=== PATIENT | female | born 1935 | race Caucasian/White ===

== ENCOUNTER → 2016-12-25 | Outpatient (CLI) | payer OTHER | LOC: BMCIMAGING 13:44 | PROVIDERS: ATTEND Internal Medicine | DX: M51.36 Other intervertebral disc degeneration, lumbar region (principal); M51.37 Other intervertebral disc degeneration, lumbosacral region; M43.16 Spondylolisthesis, lumbar region; M53.3 Sacrococcygeal disorders, not elsewhere classified; Z96.641 Presence of right artificial hip joint ==

== ENCOUNTER 2016-12-27 11:46 | Inpatient (IN) | payer OTHER ==
--- NOTE | 2016-12-27 12:40 | EDPHY ---
H & P Stated Complaint: weakness, recent fall, diarrhea, decreased p.o. Source: Patient, Family Exam Limitations: No limitations - Personal History Current Tetanus/Diphtheria Vaccine: Yes Current Tetanus Diphtheria and Acellular Pertussis (TDAP): Yes Tetanus Vaccine Date: within 10 years - Medical/Surgical History Hx Asthma: No Hx Chronic Respiratory Disease: No Hx Diabetes: No Hx Cardiac Disease: No Hx Renal Disease: No Hx Cirrhosis: No Hx Alcoholism: No Hx HIV/AIDS: No Hx Splenectomy or Spleen Trauma: No Other PMH: right hip replacement, hypothyroid - Social History Smoking Status: Never smoked HPI/ROS: CHIEF COMPLAINT: Weakness HISTORY OF PRESENT ILLNESS: Patient presents with daughter and son. They report increasing weakness over the past few weeks. They are to report decreasing energy and decreased activity. They also report decreasing appetite. She has had no chest pain. She has had some cough. She has had diarrhea. She has had extensive and significant weakness. To the point that this morning she could not get out of her bed. Her son tried to get her out of the bed to a walker and she was unable to walk more than 10 feet. She has also a recent fall, for which she was evaluated urgent care with x-ray of the entire spine. She continues to complain of pain in the right hip. This was the only area of concern not x-rayed earlier this week. She was told that her creatinine was elevated when she had labs drawn 3 days ago. No other associated complaints or factors REVIEW OF SYSTEMS: Ten systems reviewed and are negative unless otherwise noted in the HPI PAST MEDICAL HISTORY: Hypothyroid SOCIAL HISTORY: Lives independently by herself here in [place]. Has family that checks on her every week FAMILY HISTORY: Noncontributory EXAMINATION General Appearance: Alert, no distress Head: normocephalic, atraumatic Eyes: Pupils equal and round, no conjunctival pallor or injection ENT, Mouth: Mucous membranes dry. Airway is patent. Neck: Normal inspection, supple, non-tender Respiratory: Mild rhonchi. No crackles, consolidation, diminishment or distress. Cardiovascular: Regular rate and rhythm. No murmur Gastrointestinal: Abdomen is soft and nontender. No distention or tympany. Back: non-tender, no bony abnormalities Neurological: A&O, nonfocal, GCS 15. Strength is 4/5 in all 4 extremities. Skin: Warm and dry, no rash. No petechiae or purpura. No bruising. No lesions or bedsores Extremities: Tender over the right posterior pelvis. Tender over the right anterior hip. Difficulty ranging the right hip due to pain. This is symmetric to the left leg. Range of motion of the upper extremities is symmetric. Psychiatric: Mood and affect normal DIFFERENTIAL DIAGNOSES: Including but not limited to weakness, rhabdomyolysis, acute kidney injury, dehydration, pneumonia, UTI, hip fracture, ischial fracture, iliac fractures MDM: 12:35 p.m. Weakness with energy, anorexia and inability to ambulate on her own. She does appear to be very weak. He had a recent elevated creatinine earlier this week. I am checking her laboratory studies, urinalysis, chest x-ray. Plan for admission to the hospital. She is in no acute distress. No signs of stroke. 1:25 p.m. Notified by radiologist Dr. Quiroz. No acute findings on the CT scans of the head, cervical spine and pelvis. Chronic changes as noted. Chest x-ray reveals no acute pneumonia or consolidation. 1:30 p.m. Notified by RN. Patient has been intermittently noted in atrial fibrillation. Occasionally RVR, occasionally rate control. She has not been hypotensive. She still has no chest pain of any kind. Laboratory studies thus far reveal mild leukocytosis. creatinine is 1.3, which is improved from the 2.4 from 2 days ago. Urinalysis reveals no significant finding. TSH is normal. Patient will be admitted in stable condition for weakness in atrial fibrillation. We have placed her on 5 milligram/hour fixed drip of diltiazem for rate control. 2:00 p.m. I discussed the case with the hospitalist. Patient be admitted to Dr. Haney. She is admitted in stable condition. 3:25 p.m. Patient remains in the department awaiting her bed assignment. Her rate is variable but her pressure remains normal. She is in no acute distress. SUPERVISION: Patient was evaluated in conjunction with the supervising physician. Please see their note for details. (Hiro Mcgrath) Constitutional: Initial Vital Signs Temperature (C) 36.5 C 12/27/16 12:16 Heart Rate 90 12/27/16 12:16 Respiratory Rate 16 12/27/16 12:16 Blood Pressure 139/82 H 12/27/16 12:16 O2 Sat (%) 92 08/04/17 12:16 O2 Delivery Mode Room Air Allergies/Adverse Reactions: No Known Allergies Allergy (Unverified 05/14/11 16:30) Home Medications: Medication Instructions Recorded Cyanocobalamin [Vitamin B12 (*)] 1,000 mcg PO DAILY 12/27/16 Levothyroxine [Synthroid 112 mcg 112 mcg PO DAILY06 12/27/16 (*)] Liothyronine Sodium [Cytomel 5 mcg 5 mcg PO DAILY 12/27/16 (*)] Medical Decision Making - Diagnostics EKG Interpretation: 12-lead EKG interpreted by me; official reading is in trace master. My interpretation is wondering pacemaker versus intermittent atrial fibrillation, rate 128. (Shaq Velásquez) Imaging Results: Imaging Impressions Chest X-Ray 12/27/16 12:34 Impression: Mild perihilar bronchial wall thickening, with no focal infiltrate identified. If there is progression of the patient's symptoms, consider PA and lateral upright views in the department. Pelvis CT 12/27/16 12:41 Impression: 1. No acute fracture. 2. No free fluid or pelvic hematoma. Findings discussed with Emergency Department physician's assistant counsel, Hiro Mcgrath , at 1335 hours 12/27/2016. Head CT 12/27/16 12:43 Impression: 1. Negative. No subdural hematoma or evidence of acute injury. 2. Atrophy and moderate diffuse white matter disease. Findings discussed with Emergency Department physician's assistant counsel, Hiro Mcgrath , 1335 hours 12/27/2016. Cervical Spine CT 12/27/16 12:44 Impression: 1. No acute fracture or soft tissue swelling. 2. Multilevel severe degenerative disk and facet arthropathy. 3. If the patient has persistent pain or neurologic deficits, consider cervical spine MRI. Findings discussed with Emergency Department physician's assistant counsel, Hiro Mcgrath , at 1335 hours 12/27/2016. ED Course/Re-evaluation: 1500: Patient was signed out to me at change of shift by Dr. Velásquez. During the patient stay she was noted to have have a temperature when her vital signs were recheck. Went personally evaluated the patient. She was currently on diltiazem drip. The patient had no new complaints. She denies chest pain or shortness of breath. No abdominal pain, nausea or vomiting. I reviewed the patient's laboratory studies. [place] [address]. The patient's urine showed white cells but no bacteria, nitrate , or leuk esterase. Reviewed the patient's chest x-ray. There is no focal infiltrate. Based on the patient's temperature and elevated white count she was given Rocephin 1 g IV. This will cover for possible early pneumonia and possible urinary tract infection. Blood cultures were sent prior to treating with Rocephin. I contacted the hospitalist service, Dr. York to inform them of the elevated temperature. It is noted the patient has had normal saline 1 L IV for hydration since being here. She has not had any urine production in the emergency department. She was given normal saline 500 mL IV. 1755: The patient is stable. No new complaints. (Janie José) Other Provider: PHYSICIAN DOCUMENTATION: The patient was evaluated and managed by the Physician Regional Coordinator and myself. I have reviewed the chart and agree with the findings and plan of care as documented. In addition, I examined the patient myself at 1340. History confirmed as weakness and diarrhea but no palpitations chest pain or shortness of breath. Physical findings as follows: Alert, normally conversant, generally weak and irregularly irregular radial pulse. EKG reviewed appears show narrow complex tachycardia, query atrial fibrillation on EKG versus SVT. Diltiazem drip started at 5 mg an hour, TSH and troponin pending. I am the secondary supervising physician. (Shaq Velásquez) - Data Points Laboratory Results: Laboratory Results 12/27/16 12:40 12/27/16 12:40 12/27/16 12/27/16 12/27/16 13:25 12:40 12:40 WBC RBC Hgb Hct MCV MCH MCHC RDW Plt Count MPV Neut % (Auto) Lymph % (Auto) [place] % (Auto) Eos % (Auto) Baso % (Auto) Nucleat RBC Rel Count Absolute Neuts (auto) Absolute Lymphs (auto) Absolute Monos (auto) Absolute Eos (auto) Absolute Basos (auto) Absolute Nucleated RBC Immature Gran % Immature Gran # PT 14.5 SEC SEC (12.0-15.0) INR 1.14 (0.83-1.16) APTT 26.3 SEC SEC (23.0-38.0) Sodium 134 mEq/L mEq/L (134-144) Potassium 4.2 mEq/L mEq/L (3.5-5.2) Chloride 97 mEq/L mEq/L (97-110) Carbon Dioxide 22 mEq/l mEq/l (22-31) Anion Gap 15 mEq/L mEq/L (8-16) BUN 22 mg/dL mg/dL (7-23) Creatinine 1.3 mg/dL H mg/dL (0.6-1.0) Estimated GFR 39 Glucose 158 mg/dL H mg/dL (70-100) Calcium 9.2 mg/dL mg/dL (8.5-10.4) Total Bilirubin 1.1 mg/dL D mg/dL (0.1-1.4) Conjugated Bilirubin 0.3 mg/dL mg/dL (0.0-0.5) Unconjugated Bilirubin 0.8 mg/dL mg/dL (0.0-1.1) AST 60 IU/L H IU/L (14-46) ALT 94 IU/L H IU/L (9-52) Alkaline Phosphatase 155 IU/L H IU/L (38-126) Creatine Kinase 48 IU/L IU/L (0-156) Troponin I 0.032 ng/mL ng/mL (0-0.034) Total Protein 7.7 g/dL g/dL (6.3-8.2) Albumin 3.6 g/dL g/dL (3.5-5.0) Lipase 38.0 IU/L IU/L (23-300) TSH 0.490 uIU/mL uIU/mL (0.465-4.680) Urine Color YELLOW Urine Appearance HAZY Urine pH 5.0 (5.0-7.5) Ur Specific [place] 1.018 (1.002-1.030) Urine Protein 1+ H (NEGATIVE) Urine Ketones TRACE H (NEGATIVE) Urine Blood 1+ H (NEGATIVE) Urine Nitrate NEGATIVE (NEGATIVE) Urine Bilirubin NEGATIVE (NEGATIVE) Urine Urobilinogen NEGATIVE EU EU (0.2-1.0) Ur Leukocyte Esterase NEGATIVE (NEGATIVE) Urine RBC 1-3 /hpf /hpf (0-3) Urine WBC 3-5 /hpf H /hpf (0-3) Ur Epithelial Cells TRACE /lpf /lpf (NONE-1+) Urine Bacteria NONE SEEN /hpf /hpf (NONE SEEN) Urine Mucus TRACE /lpf /lpf (NONE-1+) Urine Yeast NONE SEEN /hpf /hpf (NONE SEEN) Urine Glucose NEGATIVE (NEGATIVE) 12/27/16 12:40 WBC 14.53 10^3/uL H 10^3/uL (3.80-9.50) RBC 4.78 10^6/uL 10^6/uL (4.18-5.33) Hgb 15.0 g/dL g/dL (12.6-16.3) Hct 43.0 % % (38.0-47.0) MCV 90.0 fL fL (81.5-99.8) MCH 31.4 pg pg (27.9-34.1) MCHC 34.9 g/dL g/dL (32.4-36.7) RDW 14.1 % % (11.5-15.2) Plt Count 255 10^3/uL D 10^3/uL (150-400) MPV 10.3 fL fL (8.7-11.7) Neut % (Auto) 86.3 % H % (39.3-74.2) Lymph % (Auto) 3.2 % L % (15.0-45.0) [place] % (Auto) 8.8 % % (4.5-13.0) Eos % (Auto) 0.0 % L % (0.6-7.6) Baso % (Auto) 0.3 % % (0.3-1.7) Nucleat RBC Rel Count 0.0 % % (0.0-0.2) Absolute Neuts (auto) 12.53 10^3/uL H 10^3/uL (1.70-6.50) Absolute Lymphs (auto) 0.46 10^3/uL L 10^3/uL (1.00-3.00) Absolute Monos (auto) 1.28 10^3/uL H 10^3/uL (0.30-0.80) Absolute Eos (auto) 0.00 10^3/uL L 10^3/uL (0.03-0.40) Absolute Basos (auto) 0.05 10^3/uL 10^3/uL (0.02-0.10) Absolute Nucleated RBC 0.00 10^3/uL 10^3/uL (0-0.01) Immature Gran % 1.4 % H % (0.0-1.1) Immature Gran # 0.21 10^3/uL H 10^3/uL (0.00-0.10) PT INR APTT Sodium Potassium Chloride Carbon Dioxide Anion Gap BUN Creatinine Estimated GFR Glucose Calcium Total Bilirubin Conjugated Bilirubin Unconjugated Bilirubin AST ALT Alkaline Phosphatase Creatine Kinase Troponin I Total Protein Albumin Lipase TSH Urine Color Urine Appearance Urine pH Ur Specific [place] Urine Protein Urine Ketones Urine Blood Urine Nitrate Urine Bilirubin Urine Urobilinogen Ur Leukocyte Esterase Urine RBC Urine WBC Ur Epithelial Cells Urine Bacteria Urine Mucus Urine Yeast Urine Glucose Medications Given: Discontinued Medications Dabigatran (Pradaxa) 150 mg PO EDNOW ONE Stop: 12/27/16 14:28 Last Admin: 12/27/16 15:20 Dose: 150 mg Diltiazem HCl 125 mg/ Dextrose 125 mls @ 0 mls/hr IV EDNOW ONE; As Directed PRN Reason: Protocol Stop: 12/27/16 13:43 Last Admin: 12/27/16 14:10 Dose: 125 mls Ceftriaxone Sodium/Dextrose (Rocephin 1 Gm (Premix)) 50 mls @ 100 mls/hr IV EDNOW ONE PRN Reason: Protocol Stop: 12/27/16 17:35 Last Admin: 12/27/16 17:41 Dose: 50 mls Departure - Departure Disposition: [facility] Inpatient Acute Clinical Impression: Atrial fibrillation Qualifiers: Atrial fibrillation type: unspecified Qualified Code(s): I48.91 - Unspecified atrial fibrillation Fever Qualifiers: Fever type: unspecified Qualified Code(s): R50.9 - Fever, unspecified Condition: Good
[2016-12-27 12:52] LABS: % IMMATURE GRANULYOCYTES 1.4 % (0.0-1.1); ABSOLUTE IMMATURE GRANULOCYTES 0.21 10^3/uL (0.00-0.10); ADD DIFF? NO; ADD MORPH? NO; ADD SCAN? NO; ATYPICAL LYMPHOCYTE FLAG 30 (0-99); FRAGMENT RBC FLAG 0 (0-99); LEFT SHIFT FLG 20 (0-99); LIPEMIA HEMOLYSIS FLAG 90 (0-99); MEAN CELL HEMOGLOBIN 31.4 pg (27.9-34.1); MEAN CELL HEMOGLOBIN CONCENTR. 34.9 g/dL (32.4-36.7); MEAN PLATELET VOLUME 10.3 fL (8.7-11.7); PLATELET CLUMPS FLAG 40 (0-99); PLATELET COUNT 255 10^3/uL (150-400); RED BLOOD CELL COUNT 4.78 10^6/uL (4.18-5.33); RED CELL DISTRIBUTION WIDTH 14.1 % (11.5-15.2)
[2016-12-27 13:06] LABS: ALANINE AMINOTRANSFERASE 94 IU/L (9-52); ALBUMIN 3.6 g/dL (3.5-5.0); ALKALINE PHOSPHATASE 155 IU/L (38-126); ANION GAP 15 mEq/L (8-16); ASPARTATE AMINOTRANSFERASE 60 IU/L (14-46); BILIRUBIN,TOTAL 1.1 mg/dL (0.1-1.4); BILIRUBIN-CONJUGATED 0.3 mg/dL (0.0-0.5); BILIRUBIN-UNCONJUGATED 0.8 mg/dL (0.0-1.1); CALCIUM 9.2 mg/dL (8.5-10.4); CARBON DIOXIDE 22 mEq/l (22-31); CHLORIDE 97 mEq/L (97-110); CREATININE 1.3 mg/dL (0.6-1.0); GLOMERULAR FILTRATION RATE 39; GLUCOSE 158 mg/dL (70-100); POTASSIUM 4.2 mEq/L (3.5-5.2); SODIUM 134 mEq/L (134-144); TOTAL PROTEIN 7.7 g/dL (6.3-8.2)
--- NOTE | 2016-12-27 13:08 | CPEKG ---
Heart Rate: 128 RR Interval: 469 P-R Interval: 160 QRSD Interval: 74 QT Interval: 340 QTC Interval: 496 P [place]: 0 QRS [place]: -8 T Wave [place]: 62 EKG Severity - BORDERLINE ECG - EKG Impression: WANDERING PACEMAKER EKG Impression: BORDERLINE PROLONGED QT INTERVAL Electronically Signed By: Shaq Velásquez 27-Dec-2016 13:28:47
[2016-12-27 13:10] LABS: APTT 26.3 SEC (23.0-38.0); INR 1.14 (0.83-1.16); PROTIME(PATIENT) 14.5 SEC (12.0-15.0)
[2016-12-27 13:18] LABS: TROPONIN I 0.032 ng/mL (0-0.034)
[2016-12-27 13:36] LABS: COLOR YELLOW; LEUKOCYTE ESTERASE,URINE NEGATIVE (NEGATIVE); NITRITE,URINE NEGATIVE (NEGATIVE)
[2016-12-27] MEDS ORDERED: DILTIAZEM 125 MG in D5W 125 ML IV ONE (13:42)
[2016-12-27 13:45] LABS: MUCUS TRACE /lpf (NONE-1+)
[2016-12-27 13:47] LABS: BACTERIA NONE SEEN /hpf (NONE SEEN); YEAST NONE SEEN /hpf (NONE SEEN)
[2016-12-27] MEDS ORDERED: DABIGATRAN ETEXILATE MESYL 150 MG CAP PO ONE (14:27)
[2016-12-27] MEDS ORDERED: BISACODYL 10 MG SUPP PR PRN (16:44)
[2016-12-27] MEDS ORDERED: POLYETHYLENE GLYCOL 3350 17 GM PKT PO PRN (16:44)
[2016-12-27] MEDS ORDERED: MAGNESIUM HYDROXIDE 30 ML UDCUP PO PRN (16:44)
[2016-12-27] MEDS ORDERED: ONDANSETRON 4 MG/2 ML VIAL IVP PRN (16:44)
[2016-12-27] MEDS ORDERED: PROMETHAZINE HCL 25 MG/ML INJ IVP PRN (16:44)
[2016-12-27] MEDS ORDERED: LACTULOSE 20 GM/30 ML UDCUP PO PRN (16:44)
[2016-12-27] MEDS ORDERED: ONDANSETRON DISINTEGRATING 4 MG TAB PO PRN (16:44)
[2016-12-27] MEDS ORDERED: DILTIAZEM 25 MG/5 ML VIAL IVP ONE (16:45)
[2016-12-27] MEDS ORDERED: DILTIAZEM 125 MG in D5W 125 ML IV SCH (16:45)
[2016-12-27] MEDS ORDERED: NS 500 ML IV ONE (17:07)
[2016-12-27] MEDS ORDERED: HYDROmorphONE/DILAUDID 1 MG/ML SYR IVP PRN (18:35)
[2016-12-27] MEDS: ACETAMINOPHEN 325 MG TAB PO PRN ×2 (18:59→22:58)
--- NOTE | 2016-12-27 20:05 | GHP ---
[f rep st] HISTORY AND PHYSICAL DATE OF ADMISSION: 12/27/2016 CHIEF COMPLAINT: Generalized weakness. HISTORY: This is an 81-year-old female who has a past medical history that includes chronic kidney disease, hypothyroidism, and hypertension, and presents with increasing weakness and recurrent falls over the last couple of weeks. It sounds like she has also had diarrhea for about 3 weeks. About 1 week ago, she had a fall and afterwards was unable to get up off the ground. Her daughter was abl e to come over and found her on the ground, and she notes that she had been lying there for about 4 hours. She was seen by her primary care physician after that incident, and was noted to have acute kidney injury and chronic kidney disease, as well as to be tachycardic, and was sent home with a flaco n to follow up in the coming days. She has had similar issues with inability to get up since then. She has also been noted to have shaking chills and overall decreased energy and decreased oral inta ke. Her diarrhea does seem to have resolved and she is now having constipation; has not had a bowel movement for 4 days. Family notes that she has been followed by her PCP who had concerns about her renal function and liver function labs and informed the family that this might be cancer and that s he would be following the labs to determine if she needs more of a workup. They are uncertain why h er PCP thought that she might have cancer, but this has been brought up apparently on more than 1 oc casion. She also may have had blood in her stool, but this too has not been worked up further. The patient notes that she has had colonoscopies in the past, although she does not remember the last t suad. She notes that they have all been normal. PAST MEDICAL HISTORY: 1. Hypothyroidism. 2. Hypertension. 3. Chronic kidney disease with baseline creatinine around 1.4. PAST SURGICAL HISTORY: 1. Includes hysterectomy. 2. Hip replacement. 3. Right femoral neck surgery. FAMILY HISTORY: This was reviewed and noncontributory. SOCIAL HISTORY: The patient currently lives alone. She has 2 grown children who live nearby and as sist in her care. She is a nonsmoker. She does drink alcohol occasionally. REVIEW OF SYSTEMS: A 10-point review of systems was obtained. Negative, except as per HPI. HOME MEDICATIONS: 1. Liothyronine. 2. Levothyroxine. 3. Cyanocobalamin. ALLERGIES: No known drug allergies. PHYSICAL EXAM: VITAL SIGNS: Blood pressure 157/60, heart rate 110, respiratory rate 18, O2 saturat ion is 93% on 2 L, temperature is 38.1 with a T-max of 38.4. GENERAL APPEARANCE: She is an elderly female. She is awake and alert. She is in mild distress. EYES: Anicteric. HEENT: Oropharynx c lear. CARDIOVASCULAR: Irregularly irregular, tachycardic, no MRG. PULMONARY: CTA bilaterally to anterior exam. ABDOMEN: Soft. Bowel sounds are decreased. She has diffuse tenderness to palpatio n without any rebound or guarding. EXTREMITIES: No clubbing, cyanosis, or edema. SKIN: Warm, dry , well perfused. NEUROPSYCHIATRIC: Oriented and appropriate. CLINICAL DATA: Labs reviewed significant for white blood cell count of 14.5, hematocrit of 43, plat elets of 255. Coagulation studies are within normal limits. Lactic acid is 1.3. Chemistry is nota ble for a creatinine of 1.3, down from 1.4 and 2.4 on her previous visit to her GP. AST of 60, ALT of 94, alkaline phosphatase of 155, troponin is 0.032. Urinalysis shows 1+ protein, trace ketones, 1+ blood, 3-5 white cells. Chest x-ray, personally reviewed and interpreted, shows mild perihilar bronchial wall thickening, wi thout a focal infiltrate. EKG, personally reviewed and interpreted, showing wandering atrial pacemaker. On telemetry, looks m ore consistent with atrial fibrillation. Head CT negative for any acute findings. C-spine CT without acute fractures, along with multilevel severe degenerative disk and facet arthrop athy. Pelvic CT: No acute fracture. ASSESSMENT AND PLAN: This is an 81-year-old female with increased weakness along with atrial fibril lation with rapid ventricular response and fever and chills. 1. Weakness. Suspect this is multifactorial. She is noted to be in atrial fibrillation with rapid ventricular response on arrival, but also has an elevated white blood cell count and fever, which w ill be discussed next. Also concerned that she has been dehydrated in the recent past with a creati nine as high as 2.4. Plan will be for hydration and treatment of each individual issue, as will be described next. 2. Atrial fibrillation with rapid ventricular response. Her rate has been up to the 120s to 130s. As far as the family knows, this is the 1st time she has had this issue. The plan will be to admit to telemetry. She has been given IV push diltiazem and will be started on a diltiazem drip. We wi ll monitor troponin levels and obtain an echocardiogram in the morning. Cardiology also has been co nsulted. 3. Systemic inflammatory response syndrome. Patient with fever and leukocytosis, along with tachyc ardia. Chest x-ray is not consistent with pneumonia, and urinalysis not consistent with infection; however, she does have elevated liver function tests and some abdominal pain, raising the question o f cholecystitis. Will start her on ertapenem empirically for now, pending right upper quadrant ultr asound. She does appear hemodynamically stable without any evidence of end-organ dysfunction at thi s point. 4. Abnormal liver function tests. Again, patient with mild transaminitis and elevated alkaline delia sphatase which has been persistent for several days. She does have some abdominal discomfort as piedad l. Apparently, her primary care physician has been concerned that this is cancer, but on initial ev aluation this seems more likely to be cholecystitis or similar issue. Again, we will obtain a right upper quadrant ultrasound and start antibiotics empirically. Will trend her liver function tests. 5. Diarrhea. This has resolved prior to admission, but will check Clostridium difficile/gastrointe stinal pathogen panel should it recur. Will also check an occult blood. 6. Chronic kidney disease. This does seem to be back to baseline. Again, recently worse in the se tting of dehydration and diarrhea. Will monitor. 7. Hyperglycemia. This is likely a stress response. She has had hemoglobin A1c in the past that w as 5.6, although it has been several years. Should this be persistent, I will recheck a hemoglobin A1c at that point. 8. Inpatient status. Suspect patient will need greater than 48 hours stay for evaluation and manag ement of above given multiple active issues on presentation. CODE STATUS: This was reviewed with the patient and her family. She would like to be full code wit h her daughter serving as a DPOA should she have the need for one. This patient is new to my care. Old records reviewed. Summarized as per HPI and past medical histo ry. Care plan reviewed with ER physician, including plans for treatment of atrial fibrillation. /[id number]/MODL
[2016-12-27] MEDS: ERTAPENEM 1 GM in NS 100 ML IV SCH (20:23)
[2016-12-27 20:57] LABS: INR 1.9 (0.83-1.16); PROTIME(PATIENT) 21.9 SEC (12.0-15.0)
[2016-12-27 20:58] LABS: APTT 61.5 SEC (23.0-38.0)
[2016-12-27] MEDS: SENNOSIDES/DOCUSATE SODIUM TAB PO SCH (22:58)
[2016-12-27] MEDS: ENOXAPARIN 80 MG/0.8 ML SYR SC SCH (22:59)
[2016-12-28 02:37] LABS: COLOR YELLOW; LEUKOCYTE ESTERASE,URINE TRACE (NEGATIVE); NITRITE,URINE NEGATIVE (NEGATIVE)
[2016-12-28 02:44] LABS: BACTERIA 4+ /hpf (NONE SEEN); MUCUS 3+ /lpf (NONE-1+); RBC,URINE 15-25 /hpf (0-3); WBC,URINE 15-25 /hpf (0-3)
[2016-12-28] MEDS: LEVOTHYROXINE 112 MCG TAB PO SCH (04:02)
[2016-12-28] MEDS: ACETAMINOPHEN 325 MG TAB PO PRN ×2 (04:26→19:57)
[2016-12-28 04:27] LABS: % IMMATURE GRANULYOCYTES 1.7 % (0.0-1.1); ABSOLUTE IMMATURE GRANULOCYTES 0.25 10^3/uL (0.00-0.10); ADD DIFF? NO; ADD MORPH? NO; ADD SCAN? NO; ATYPICAL LYMPHOCYTE FLAG 20 (0-99); FRAGMENT RBC FLAG 0 (0-99); HEMATOCRIT 42.1 % (38.0-47.0); HEMOGLOBIN 14.2 g/dL (12.6-16.3); LEFT SHIFT FLG 80 (0-99); LIPEMIA HEMOLYSIS FLAG 80 (0-99); MEAN CELL HEMOGLOBIN 31.1 pg (27.9-34.1); MEAN CELL HEMOGLOBIN CONCENTR. 33.7 g/dL (32.4-36.7); MEAN CELL VOLUME 92.3 fL (81.5-99.8); MEAN PLATELET VOLUME 10.6 fL (8.7-11.7); PLATELET CLUMPS FLAG 30 (0-99); PLATELET COUNT 232 10^3/uL (150-400); RED BLOOD CELL COUNT 4.56 10^6/uL (4.18-5.33); RED CELL DISTRIBUTION WIDTH 14.4 % (11.5-15.2)
[2016-12-28] MEDS: NS 1,000 ML IV SCH ×2 (04:30→14:01)
[2016-12-28 05:11] LABS: ALANINE AMINOTRANSFERASE 64 IU/L (9-52); ALBUMIN 2.8 g/dL (3.5-5.0); ALKALINE PHOSPHATASE 135 IU/L (38-126); ANION GAP 14 mEq/L (8-16); ASPARTATE AMINOTRANSFERASE 39 IU/L (14-46); BILIRUBIN,TOTAL 1.2 mg/dL (0.1-1.4); CALCIUM 8.6 mg/dL (8.5-10.4); CARBON DIOXIDE 17 mEq/l (22-31); CHLORIDE 104 mEq/L (97-110); GLOMERULAR FILTRATION RATE 53; GLUCOSE 107 mg/dL (70-100); POTASSIUM 4.2 mEq/L (3.5-5.2); SODIUM 135 mEq/L (134-144); TOTAL PROTEIN 6.1 g/dL (6.3-8.2)
[2016-12-28 05:22] LABS: TROPONIN I 0.019 ng/mL (0-0.034)
[2016-12-28] MEDS: CYANO/VITAMIN B12 1000 MCG TAB PO SCH (08:27)
[2016-12-28] MEDS: LIOTHYRONINE SODIUM 5 MCG TAB PO SCH (08:27)
[2016-12-28] MEDS: ENOXAPARIN 80 MG/0.8 ML SYR SC SCH (08:28)
[2016-12-28] MEDS: SENNOSIDES/DOCUSATE SODIUM TAB PO SCH ×2 (08:29→19:40)
[2016-12-28] MEDS: ERTAPENEM 1 GM in NS 100 ML IV SCH (08:29)
--- NOTE | 2016-12-28 09:02 | CPEKG ---
Heart Rate: 122 RR Interval: 492 P-R Interval: 157 QRSD Interval: 82 QT Interval: Invalid QTC Interval: Invalid P [place]: 0 QRS [place]: -19 T Wave [place]: 140 EKG Severity - ABNORMAL ECG - EKG Impression: SINUS TACHYCARDIA EKG Impression: Frequent PAC EKG Impression: BORDERLINE LEFT AXIS DEVIATION EKG Impression: CONSIDER ANTERIOR INFARCT EKG Impression: ABNORMAL T, CONSIDER ISCHEMIA, LATERAL LEADS Electronically Signed By: Errol Fuentes 28-Dec-2016 11:13:56
--- NOTE | 2016-12-28 12:11 | PDCARCONS ---
Cardiology Consult Reason for Consult: atrial arrhythmias Chief Complaint: fall, weakness, diarrhea Requesting Physician: Dr. Shaniqua Schmidt History of Present Illness: 81-year-old female admitted after her son found her fallen on the floor from her bed. She was seen on 2 [facility] floor with her daughter, son and higher and present in the room. She has been having diarrhea over the last 2 weeks, she went with her daughter- in-law for lunch last week and after a couple of glasses of wine was noted to be very unsteady on her feet and had to be helped into bed. Subsequently she was found by her son yesterday having fallen out of her bed and unable to get herself back in bed. She was brought to the emergency department and evaluated for any trauma, although the scans did not show any significant traumatic injuries. At the time of this interview, she denies any chest pain or shortness of breath. She has had falls as mentioned above. History Information - Allergies/Home Medication List Allergies/Adverse Reactions: No Known Allergies Allergy (Unverified 05/14/11 16:30) Home Medications: Cyanocobalamin [Vitamin B12 (*)] 1,000 mcg PO DAILY 12/27/16 [Last Taken ] Levothyroxine [Synthroid 112 mcg (*)] 112 mcg PO DAILY06 12/27/16 [Last Taken ] Liothyronine Sodium [Cytomel 5 mcg (*)] 5 mcg PO DAILY 12/27/16 [Last Taken 09/09] I have personally reviewed and updated: family history, medical history, social history, surgical history - Social History Smoking Status: Never smoked Physical Exam Temp Pulse Resp BP Pulse Ox 36.6 C 148 H 17 110/73 90 L 12/28/16 11:34 12/28/16 11:34 12/28/16 11:34 12/28/16 11:34 12/28/16 11:34 O2 (L/minute) 2 Constitutional: not in pain, chronically ill appearing, unkempt Eyes: PERRL, EOMI Ears, Nose, Mouth, Throat: moist mucous membranes Cardiovascular: systolic murmur, No regular rate and rhythym, No edema Respiratory: no respiratory distress Gastrointestinal: soft, non-tender abdomen Skin: warm, normal color Psychiatric: interacting appropriately, not encephalopathic Lab and Imaging 12/28/16 04:06 12/28/16 04:06 WBC 15.14 10^3/uL (3.80-9.50) H 12/28/16 04:06 RBC 4.56 10^6/uL (4.18-5.33) 12/28/16 04:06 Hgb 14.2 g/dL (12.6-16.3) 12/28/16 04:06 Hct 42.1 % (38.0-47.0) 12/28/16 04:06 MCV 92.3 fL (81.5-99.8) 12/28/16 04:06 MCH 31.1 pg (27.9-34.1) 12/28/16 04:06 MCHC 33.7 g/dL (32.4-36.7) 12/28/16 04:06 RDW 14.4 % (11.5-15.2) 12/28/16 04:06 Plt Count 232 10^3/uL (150-400) 12/28/16 04:06 MPV 10.6 fL (8.7-11.7) 12/28/16 04:06 Neut % (Auto) 86.5 % (39.3-74.2) H 12/28/16 04:06 Lymph % (Auto) 4.6 % (15.0-45.0) L 12/28/16 04:06 [place] % (Auto) 6.7 % (4.5-13.0) 12/28/16 04:06 Eos % (Auto) 0.1 % (0.6-7.6) L 12/28/16 04:06 Baso % (Auto) 0.4 % (0.3-1.7) 12/28/16 04:06 Nucleat RBC Rel Count 0.0 % (0.0-0.2) 12/28/16 04:06 Absolute Neuts (auto) 13.11 10^3/uL (1.70-6.50) H 12/28/16 04:06 Absolute Lymphs (auto) 0.69 10^3/uL (1.00-3.00) L 12/28/16 04:06 Absolute Monos (auto) 1.02 10^3/uL (0.30-0.80) H 12/28/16 04:06 Absolute Eos (auto) 0.01 10^3/uL (0.03-0.40) L 12/28/16 04:06 Absolute Basos (auto) 0.06 10^3/uL (0.02-0.10) 12/28/16 04:06 Absolute Nucleated RBC 0.00 10^3/uL (0-0.01) 12/28/16 04:06 Immature Gran % 1.7 % (0.0-1.1) H 12/28/16 04:06 Immature Gran # 0.25 10^3/uL (0.00-0.10) H 12/28/16 04:06 PT 21.9 SEC (12.0-15.0) H 12/27/16 20:33 INR 1.90 (0.83-1.16) H 12/27/16 20:33 APTT 61.5 SEC (23.0-38.0) H D 12/27/16 20:33 VBG Lactic Acid 1.3 mmol/L (0.7-2.1) 12/27/16 17:45 Sodium 135 mEq/L (134-144) 12/28/16 04:06 Potassium 4.2 mEq/L (3.5-5.2) 12/28/16 04:06 Chloride 104 mEq/L (97-110) 12/28/16 04:06 Carbon Dioxide 17 mEq/l (22-31) L 12/28/16 04:06 Anion Gap 14 mEq/L (8-16) 12/28/16 04:06 BUN 18 mg/dL (7-23) 12/28/16 04:06 Creatinine 1.0 mg/dL (0.6-1.0) 12/28/16 04:06 Estimated GFR 53 12/28/16 04:06 Glucose 107 mg/dL (70-100) H 12/28/16 04:06 Calcium 8.6 mg/dL (8.5-10.4) 12/28/16 04:06 Phosphorus 3.2 mg/dL (2.5-4.5) 12/28/16 04:06 Magnesium 2.0 mg/dL (1.6-2.3) 12/28/16 04:06 Total Bilirubin 1.2 mg/dL (0.1-1.4) 12/28/16 04:06 Conjugated Bilirubin 0.3 mg/dL (0.0-0.5) 12/27/16 12:40 Unconjugated Bilirubin 0.8 mg/dL (0.0-1.1) 12/27/16 12:40 AST 39 IU/L (14-46) 12/28/16 04:06 ALT 64 IU/L (9-52) H 12/28/16 04:06 Alkaline Phosphatase 135 IU/L (38-126) H 12/28/16 04:06 Creatine Kinase 48 IU/L (0-156) 12/27/16 12:40 Troponin I 0.019 ng/mL (0-0.034) 12/28/16 04:06 Total Protein 6.1 g/dL (6.3-8.2) L D 12/28/16 04:06 Albumin 2.8 g/dL (3.5-5.0) L 12/28/16 04:06 Lipase 38.0 IU/L (23-300) 12/27/16 12:40 TSH 0.490 uIU/mL (0.465-4.680) 12/27/16 12:40 Urine Color YELLOW 12/28/16 01:52 Urine Appearance MODERATELY TURBID 12/28/16 01:52 Urine pH 5.0 (5.0-7.5) 12/28/16 01:52 Ur Specific [place] 1.019 (1.002-1.030) 12/28/16 01:52 Urine Protein 2+ (NEGATIVE) H 12/28/16 01:52 Urine Ketones NEGATIVE (NEGATIVE) 12/28/16 01:52 Urine Blood 1+ (NEGATIVE) H 12/28/16 01:52 Urine Nitrate NEGATIVE (NEGATIVE) 12/28/16 01:52 Urine Bilirubin NEGATIVE (NEGATIVE) 12/28/16 01:52 Urine Urobilinogen NEGATIVE EU (0.2-1.0) 12/28/16 01:52 Ur Leukocyte Esterase TRACE (NEGATIVE) H 12/28/16 01:52 Urine RBC 15-25 /hpf (0-3) H 12/28/16 01:52 Urine WBC 15-25 /hpf (0-3) H 12/28/16 01:52 Ur Epithelial Cells 4+ /lpf (NONE-1+) H 12/28/16 01:52 Urine Bacteria 4+ /hpf (NONE SEEN) H 12/28/16 01:52 Urine Mucus 3+ /lpf (NONE-1+) H 12/28/16 01:52 Urine Yeast NONE SEEN /hpf (NONE SEEN) 12/27/16 13:25 Ur Culture Indicated? INDICATED (NI) H 12/28/16 01:52 Urine Glucose 1+ (NEGATIVE) H 12/28/16 01:52 EKG additional interpertation: Sinus rhythm with wandering atrial pacemaker and salvos of atrial tachycardia Telemetry: Sinus rhythm with wandering atrial pacemaker and salvos of atrial tachycardia with heart rate up to 130 beats per minute. Echocardiogram: Has been done, I will review it. A/P Assessment: 1. Diarrhea 2. Hepatic and renal dysfunction, possibly related to dehydration 3. Sinus rhythm with wandering atrial pacemaker, short episodes of atrial tachycardia. Plan: 81-year-old female was admitted with dehydration related to diarrhea, hepatic and renal dysfunction. I have been asked to comment on her atrial arrhythmias. I have reviewed both her EKGs and her monitoring analyst. I do not see atrial fibrillation. Rhythm is consistent with sinus rhythm with wandering atrial pacemaker and short episodes of atrial tachycardia. She does not need full dose of anticoagulation. I have discussed this with Dr. Shaniqua Schmidt and the patient's nurse who will make appropriate changes in her Lovenox dose. As regards management of her atrial arrhythmias, I am going to start her on oral diltiazem and hopefully we can wean her IV diltiazem off. Thank you for the consultation, please do not hesitate to call us again if there are any further questions or concerns.
[2016-12-28] MEDS: DILTIAZEM 60 MG TAB PO SCH ×2 (13:30→19:40)
--- NOTE | 2016-12-28 13:46 | ECHO ---
[id number] + + [address] : : [place] [address] : : [phone] + + Adult Echocardiographic Report + + :Name: FRANKO MATHEWS JStudy Date: 12/28/2016 09:04 AM : : Hospital Admission Number: [id number] Location: 216: :: 1935 Gender: Female Height: 63 in : :Age: 81 yrs Race: WH Weight: 150 lb : :Reason For Study: New atrial fibrillaiton : : BSA: 1. 7 meters2 : + + MMode/2D Measurements \T\ Calculations LVIDd: 4.2 cm EDV(Teich): 80.0 ml Ao root diam: 3.9 cm LA dimension: 3.7 cm Normal Measurement Values: + + :LVIDd (3.5-5.7cm) IVSd (0.6-1.1cm) LVPWd (0.6-1.1cm) Aortic Root (2.0-3.7cm)Left Atrium (1.5-4.0cm): :LV Vol(d) (76-115ml) LV Vol(s) (29-48ml) Ejec Fraction (50-65%)PV Chaitanya (0.6- 1.2m/s) TV Chaitanya (0.4-1.0m/s) : :MV E Chaitanya (0.8-1.0m/s)MV A Chaitanya (0.3-1.0m/s)LVOT Chaitanya (0.7-1.2m/s) Asc Ao Chaitanya ( 0.9-1.8m/s) : + + Doppler Measurements \T\ Calculations MV E max chaitanya: 105.6 cm/sec Ao V2 max: 129.0 cm/sec MV A max chaitanya: 94.3 cm/sec Ao max P.7 mmHg MV E/A: 1.1 Left Ventricle The left ventricle is normal in size. There is normal left ventricular wall thickness. Left ventricular systolic function is normal. Ejection Fraction = 55-60%. No regional wall motion abnormalities noted. Right Ventricle The right ventricle is normal in size and function. Atria The left atrial size is normal. Right atrial size is normal. The interatrial septum is intact with no evidence for an atrial septal defect. Mitral Valve There is moderate mitral annular calcification. There is no evidence of mitral valve prolapse. There is no mitral valve stenosis. There is trace to mild mitral regurgitation. Tricuspid Valve Normal tricuspid valve. Aortic Valve The aortic valve opens well. There is no aortic stenosis. Trace aortic regurgitation. Pulmonic Valve The pulmonic valve is not well visualized. There is no pulmonic valvular regurgitation. Great Vessels The aortic root is normal size. Pericardium/Pleural There is no pericardial effusion. Conclusion A complete two-dimensional transthoracic echocardiogram was performed (2D, M-mode, Doppler and color flow Doppler). Left ventricular systolic function is normal. Ejection Fraction = 55-60%. There is moderate mitral annular calcification. There is trace to mild mitral regurgitation. Trace aortic regurgitation. Final Reading Physician: Errol Fuentes MD electronically signed on 12/28/2016 01:45 PM Ordering Physician: Kelly Haney Performed By: Deysi Medina, IRVING
--- NOTE | 2016-12-28 14:04 | HOSPPROG ---
Hospitalist Progress Note Assessment/Plan: 81-year-old woman admitted yesterday with weakness and falls. She has a 3 week history of diarrhea prior to this which has since resolved. She has been followed up by her PCP who noted acute on chronic kidney disease as well as elevated liver tests. The patient has continued to do poorly at home with increased lethargy, fevers chills and was admitted for further evaluation of that after another fall evaluation in the ER included head CT neck CT chest x- ray all of which were fairly unremarkable. Today she is fairly somnolent but does admit to some abdominal discomfort on exam. # MSSA bacteremia unclear source. Currently on ertapenem for possible GI source. Patient tachycardia from atrial tachycardia and likely not sepsis as her blood pressure has been stable however will need to continue to watch this closely. * Infectious disease consult * Continue antibiotics for MSSA * Check CT scan of the abdomen and pelvis. Creatinine is currently normal will attempt to get contrast and continue hydration * Echocardiogram showed no vegetations. * Follow-up blood cultures tomorrow. # atrial tachycardia: Patient with intermittent tachycardia, discussed with Dr. Fuentes who feels this is not atrial fibrillation but likely an atrial tachycardia and does not need anticoagulation. Will still continue diltiazem for rate control. # diarrhea: Currently no stools and 4 days will follow # hypothyroidism, on replacement with normal TSH # hypertension stable, Subjective: Patient new to me chart reviewed. She is fairly lethargic but answers some questions. Her daughter says her mental status has been stable throughout her stay here in the hospital usually she is much more alert and home Objective: Vital Signs Temp Pulse Resp BP Pulse Ox 36.6 C 148 H 17 110/73 90 L 12/28/16 11:34 12/28/16 11:34 12/28/16 11:34 12/28/16 11:34 12/28/16 11:34 Microbiology 12/27/16 17:10 Blood Panel (PCR) - Final Blood S.aureus Methicillin Suscept. Laboratory Results 12/28/16 04:06 12/28/16 04:06 12/27/16 12/28/16 12/29/16 05:59 05:59 05:59 Intake Total 2560 Output Total 100 Balance 2460 PT 21.9 SEC (12.0-15.0) H 12/27/16 20:33 INR 1.90 (0.83-1.16) H 12/27/16 20:33 - Physical Exam Constitutional: chronically ill appearing, uncomfortable Eyes: PERRL, EOMI Ears, Nose, Mouth, Throat: dry mucous membranes Cardiovascular: regular rate and rhythym Respiratory: no respiratory distress, reduced air movement Gastrointestinal: no palpable masses, tenderness (Diffusely), No normoactive bowel sounds (Diminished), No guarding Genitourinary: no bladder fullness Skin: warm Musculoskeletal: generalized weakness Neurologic: No AAOx3, No facial droop Psychiatric: encephalopathic, No interacting appropriately ICD10 Worksheet Patient Problems: Problems Problem Status Onset Fever Acute Atrial fibrillation Acute
[2016-12-28] MEDS ORDERED: IOPAMIDOL (ISOVUE-300) 100 ML BTL ONE (16:22)
--- NOTE | 2016-12-28 17:58 | GCON ---
[f rep st] CONSULTATION DATE OF CONSULTATION: 12/28/2016 REFERRING PHYSICIAN: Shaniqua Schmidt MD REASON FOR CONSULTATION: MSSA bacteremia for further evaluation and opinion. CHIEF COMPLAINT: Diarrhea, weakness and fevers. HISTORY OF PRESENT ILLNESS: This is an 81-year-old female with a past medical history significant for hypothyroidism, hypertension, chronic kidney disease, who apparently fell around December 22 on her right side. She was evaluated at her primary care doctor's office where she had a normal white blood cell count at the time, but slightly elevated LFTs. She did have a markedly elevated C-reactive protein 81. Apparently 1 week prior to that she had an episode of diarrhea then as well. She has had intermittent shaking chills and intermittent fevers as well. She apparently was having diarrhea all of last week and then it stopped about 4 days ago where she has not moved her bowels. She did take Imodium when she was having diarrhea. She was noted to be febrile at 38.4 on admission. She had a white blood cell count of 14.5 with a left shift. Blood cultures x2 sets were drawn and all 4 bottles are growing out MSSA. She had a urinalysis done which showed initially not much pyuria and whites and followup urinalysis this morning with 15-25 whites, but there was 4+ epithelial cells. Urine culture is pending. She had head CT which was unremarkable, pelvis CT which was unremarkable and a cervical spine CT which just showed degenerative joint disease. She also had an abdominal ultrasound which was read as a normal study with no evidence of gallstones, gallbladder wall thickening or pericholecystic fluid. There is no dilatation of the intra or extrahepatic biliary duct. She was placed empirically on Invanz therapy yesterday. White blood cell count today is 15.1, ongoing left shift. Her temperatures have improved with no spiking temperatures so far. She complains of ongoing [id number] right hip and lower back pain since the fall. She has had intermittent numbness and tingling down the legs, but this is according to her not a new complaint. She has not been able to move her bowels in 4 days, but she just had a bowel movement during my interview with her, which was watery and loose without blood. She denied urinary incontinence although today she was not able to get up to use the commode to urinate and that could be due to her weakness. Her daughter is at bedside as well. REVIEW OF SYSTEMS: Intermittent fevers and shaking chills. HEAD: Denies any headaches. EYES: Denies any change in vision. ENT: No sore throat, difficulty swallowing, ear pain or drainage. CARDIOVASCULAR: Denies any chest pain or rapid heartbeat. RESPIRATORY: Denies any shortness of breath, cough or sputum production. ABDOMEN: No nausea, vomiting, abdominal pain. The rest as above. : No dysuria. MUSCULOSKELETAL: Complains of right hip pain and lower back pain. SKIN: Denies any rashes, open wounds. The rest of 10-point review of systems essentially negative except for above. PAST MEDICAL HISTORY: Significant for hypertension, hypothyroidism, chronic kidney disease. PAST SURGICAL HISTORY: Significant for right hip replacement, hysterectomy, right femoral neck surgery. ALLERGIES: No known drug allergies. SOCIAL HISTORY: Nonsmoker. Drinks alcohol occasionally. She lives by herself. She has a dog who is healthy. She has 2 grown children who live near her and one of daughters is here with her at present. FAMILY HISTORY: Reviewed and found to be noncontributory. MEDICATIONS: As per JUL. PHYSICAL EXAMINATION: VITAL SIGNS: Temperature current 36.7, pulse is 131, blood pressure 129/64, respiratory rate 30, saturations 93% on 2 L O2 by nasal cannula. GENERAL: Patient is resting in bed in no acute respiratory distress. Awake, alert, and oriented. HEENT: Eyes: No conjunctival injection. No petechiae noted. Oropharynx is clear. CARDIOVASCULAR: S1, S2. Regular rate and rhythm. She has a soft systolic murmur present. RESPIRATORY: Clear to auscultate bilaterally. No rhonchi or rales appreciated. ABDOMEN: Positive bowel sounds in all quadrants. Soft, nontender, nondistended. No obvious organomegaly appreciated. EXTREMITIES: No lower extremity edema. MUSCULOSKELETAL: No obvious joint effusions appreciated. She does have some pain on palpation of the right hip as well as the lower back. SKIN: No evidence of erythema or open wounds. No obvious peripheral stigmata of endocarditis at this time. LABS: White blood count 15.1, hemoglobin 14.2, platelets 232, neutrophils 86%. INR 1.9. Lactic acid 1.3. Sodium 135, potassium 4.2, chloride 104, bicarb 17 , BUN is 18, creatinine is 1.0. AST 39, ALT 64, alk phos 135, total bilirubin 1.2. Urinalysis as stated above. Blood cultures as stated above. Urine culture is pending. Imaging results have all been reviewed by me and are stated above. ASSESSMENT: 1. Methicillin-sensitive Staphylococcus aureus bacteremia and sepsis. 2. Right hip pain and lower back pain. Evaluate further. PLAN: No obvious skin breakdown as source for the bacteremia as such. Of concern is the ongoing [id number] right hip pain and lower back pain since her fall so recommend this be evaluated further with an MRI if possible, to evaluate further for abscess, possible epidural abscess, osteomyeliteis, diskitis etc. She will also be getting a CT of the abdomen and pelvis as well for further evaluation. She is currently on Invanz. Would recommend changing to Ancef therapy for more directive antimicrobial treatment. We will check followup blood cultures in 48 hours. The patient did have a 2D echo done which showed no evidence of vegetations. Will continue to monitor. If does not clear blood cultures quickly, she may need a FREDDY. Plan of care was discussed with the patient and daughter at the bedside. Care was also coordinated with Dr. Schmidt as well and the nursing staff. I thank you very much for providing us the opportunity to care for your patient in consultation. /[id number]/MODL MTDD
[2016-12-28] MEDS: ceFAZolin 2 GM/DEXTROSE 100 ML IV SCH (22:35)
[2016-12-29] MEDS: NS 1,000 ML IV SCH (01:28)
[2016-12-29] MEDS: DILTIAZEM 60 MG TAB PO SCH ×3 (04:05→20:03)
[2016-12-29 05:21] LABS: ADD MORPH? NO; ATYPICAL LYMPHOCYTE FLAG 0 (0-99); FRAGMENT RBC FLAG 0 (0-99); HEMATOCRIT 39.4 % (38.0-47.0); HEMOGLOBIN 13.3 g/dL (12.6-16.3); LIPEMIA HEMOLYSIS FLAG 90 (0-99); MEAN CELL HEMOGLOBIN 30.5 pg (27.9-34.1); MEAN CELL HEMOGLOBIN CONCENTR. 33.8 g/dL (32.4-36.7); MEAN CELL VOLUME 90.4 fL (81.5-99.8); MEAN PLATELET VOLUME 10.4 fL (8.7-11.7); PLATELET CLUMPS FLAG 0 (0-99); PLATELET COUNT 288 10^3/uL (150-400); RED BLOOD CELL COUNT 4.36 10^6/uL (4.18-5.33); RED CELL DISTRIBUTION WIDTH 14.6 % (11.5-15.2)
[2016-12-29 05:24] LABS: LEFT SHIFT FLG 150 (0-99)
[2016-12-29 05:25] LABS: ADD DIFF? YES; ADD SCAN? NO
[2016-12-29 05:38] LABS: ALANINE AMINOTRANSFERASE 59 IU/L (9-52); ALBUMIN 2.8 g/dL (3.5-5.0); ALKALINE PHOSPHATASE 144 IU/L (38-126); ANION GAP 14 mEq/L (8-16); ASPARTATE AMINOTRANSFERASE 38 IU/L (14-46); BILIRUBIN,TOTAL 0.9 mg/dL (0.1-1.4); CALCIUM 8.3 mg/dL (8.5-10.4); CARBON DIOXIDE 18 mEq/l (22-31); CHLORIDE 103 mEq/L (97-110); CREATININE 0.9 mg/dL (0.6-1.0); GLOMERULAR FILTRATION RATE > 60; GLUCOSE 104 mg/dL (70-100); POTASSIUM 3.9 mEq/L (3.5-5.2); SODIUM 135 mEq/L (134-144); TOTAL PROTEIN 6.1 g/dL (6.3-8.2)
[2016-12-29 05:51] LABS: PLATELET ESTIMATE ADEQUATE (ADEQ)
[2016-12-29] MEDS: LEVOTHYROXINE 112 MCG TAB PO SCH (05:55)
[2016-12-29] MEDS: ceFAZolin 2 GM/DEXTROSE 100 ML IV SCH ×3 (05:55→21:55)
--- NOTE | 2016-12-29 12:49 | HOSPPROG ---
Hospitalist Progress Note Assessment/Plan: 81-year-old woman admitted yesterday with weakness and falls. She has a 3 week history of diarrhea prior to this which has since resolved. She has been followed up by her PCP who noted acute on chronic kidney disease as well as elevated liver tests. The patient has continued to do poorly at home with increased lethargy, fevers chills and was admitted for further evaluation of that after another fall evaluation in the ER included head CT neck CT chest x- ray all of which were fairly unremarkable. She is bacteremic with Staph aureus growing in her blood. # MSSA bacteremia unclear source. Appreciate ID consult, no obvious source found * Follow up repeat blood culture * MRI of the spine to rule out epidural abscess * Patient currently on Ancef # tachypnea with increased oxygen needs. I suspect the patient is fluid overloaded. She is taking in better p.o. intake * DC IV fluids * It chest x-ray * Consider Lasix # atrial tachycardia: Patient with intermittent tachycardia, discussed with Dr. Fuentes who feels this is not atrial fibrillation but likely an atrial tachycardia and does not need anticoagulation. Will still continue diltiazem for rate control. # diarrhea: Currently no stools and 4 days will follow # hypothyroidism, on replacement with normal TSH # hypertension stable, Subjective: Patient more short of breath today and feel congested however she is much more alert than yesterday and has no specific complaints. Objective: Vital Signs Temp Pulse Resp BP Pulse Ox 36.8 C 121 H 34 H 127/75 H 90 L 12/29/16 11:15 12/29/16 11:15 12/29/16 11:15 12/29/16 04:00 12/29/16 11:15 Microbiology 12/27/16 17:10 Blood Panel (PCR) - Final Blood S.aureus Methicillin Suscept. Laboratory Results 12/29/16 04:40 12/29/16 04:40 12/28/16 12/29/16 12/30/16 05:59 05:59 05:59 Intake Total 2560 3570 500 Output Total 100 Balance 2460 3570 500 PT 21.9 SEC (12.0-15.0) H 12/27/16 20:33 INR 1.90 (0.83-1.16) H 12/27/16 20:33 - Physical Exam Constitutional: chronically ill appearing, uncomfortable Eyes: PERRL, EOMI Ears, Nose, Mouth, Throat: moist mucous membranes Cardiovascular: tachycardia Respiratory: reduced air movement, respiratory distress Gastrointestinal: normoactive bowel sounds, soft, non-tender abdomen Genitourinary: no bladder fullness Skin: warm Musculoskeletal: generalized weakness Neurologic: No AAOx3 Psychiatric: interacting appropriately, not anxious, not encephalopathic ICD10 Worksheet Patient Problems: Problems Problem Status Onset Atrial fibrillation Acute Fever Acute
[2016-12-29] MEDS: SENNOSIDES/DOCUSATE SODIUM TAB PO SCH ×2 (13:45→20:00)
[2016-12-29] MEDS: LIOTHYRONINE SODIUM 5 MCG TAB PO SCH (13:45)
[2016-12-29] MEDS: CYANO/VITAMIN B12 1000 MCG TAB PO SCH (13:46)
--- NOTE | 2016-12-29 17:42 | PCMIDPN ---
Assessment/Plan: Assessment/Plan: 1. MSSA bacteremia/sepsis likely secondary to epidural abscess: -Currently on Ancef therapy. - f/segundo blood cx today pending -MRI studies limited due to patient refusing to complete study. REviewed preliminary reading with radiologist. Hip MRI apparently looked unremarkable but lumbar spine MRI with possible L3 epidural abscess. await official report -Needs repeat MRI lumbar spine with sedation. Discussed with hospitalist team. Update family regarding results, need for repeat study, need for neurosurg eval and likely surgery etc. -care coordinated with Rn. Dwyer ancef 2g q8-12/28/16 Subjective: afebrile. more alert. STill having lowe back pain. weak. standing but with lot of support. denies sob,. still with loose stools. daughter/son at bedside. Objective: Vital Signs Temp Pulse Resp BP Pulse Ox 37.4 C 116 H 22 H 117/58 L 94 12/29/16 16:00 12/29/16 16:00 12/29/16 16:00 12/29/16 16:00 12/29/16 16:00 Microbiology 12/28/16 12:10 Gastrointestinal Tract Panel (PCR) - Final Stool No Organism Detected 12/27/16 17:10 Blood Panel (PCR) - Final Blood S.aureus Methicillin Suscept. Laboratory Results 12/29/16 04:40 12/29/16 04:40 12/28/16 12/29/16 12/30/16 05:59 05:59 05:59 Intake Total 2560 3570 1000 Output Total 100 Balance 2460 3570 1000 - Physical Exam General Appearance: alert, no apparent distress Respiratory: coarse breath sounds Cardiac/Chest: regular rate, rhythm Extremities: No swelling Abdomen: normal bowel sounds, non-tender, soft, No distended Neuro/Psych: other (able to dorsiflex/plantar flex toes. unable to exam further given patient's weakness.), No sensory deficit - Time Spent With Patient Time Spent with Patient: greater than 35 minutes Time Spent with Patient: Greater than 35 minutes spent on this patients care, greater than 50% of time spent counseling, educating, and coordinating care regarding the above mentioned plan. ICD10 Worksheet Patient Problems: Problems Problem Status Onset Atrial fibrillation Acute Fever Acute
[2016-12-29] MEDS: ACETAMINOPHEN 325 MG TAB PO PRN (18:04)
[2016-12-30] MEDS: LEVOTHYROXINE 112 MCG TAB PO SCH (04:48)
[2016-12-30] MEDS: DILTIAZEM 60 MG TAB PO SCH ×3 (04:48→20:08)
[2016-12-30] MEDS: ACETAMINOPHEN 325 MG TAB PO PRN (04:48)
[2016-12-30] MEDS: ceFAZolin 2 GM/DEXTROSE 100 ML IV SCH ×3 (04:49→21:44)
[2016-12-30 05:06] LABS: HEMATOCRIT 36.8 % (38.0-47.0); HEMOGLOBIN 12.6 g/dL (12.6-16.3); MEAN CELL HEMOGLOBIN 31.3 pg (27.9-34.1); MEAN CELL HEMOGLOBIN CONCENTR. 34.2 g/dL (32.4-36.7); MEAN CELL VOLUME 91.3 fL (81.5-99.8); RED BLOOD CELL COUNT 4.03 10^6/uL (4.18-5.33); RED CELL DISTRIBUTION WIDTH 14.8 % (11.5-15.2)
[2016-12-30 05:22] LABS: ANION GAP 10 mEq/L (8-16); CARBON DIOXIDE 16 mEq/l (22-31); CHLORIDE 104 mEq/L (97-110); CREATININE 0.8 mg/dL (0.6-1.0); GLOMERULAR FILTRATION RATE > 60; GLUCOSE 96 mg/dL (70-100); POTASSIUM 4.2 mEq/L (3.5-5.2); SODIUM 130 mEq/L (134-144)
[2016-12-30 05:38] LABS: C-REACTIVE PROTEIN 264.7 mg/L (<10.0)
[2016-12-30] MEDS: SENNOSIDES/DOCUSATE SODIUM TAB PO SCH ×2 (08:59→20:09)
[2016-12-30] MEDS ORDERED: FUROSEMIDE 20 MG/2 ML VIAL IVP ONE (10:38)
--- NOTE | 2016-12-30 10:41 | HOSPPROG ---
Hospitalist Progress Note Assessment/Plan: 81-year-old woman admitted yesterday with weakness and falls. She has a 3 week history of diarrhea prior to this which has since resolved. She has been followed up by her PCP who noted acute on chronic kidney disease as well as elevated liver tests. The patient has continued to do poorly at home with increased lethargy, fevers chills and was admitted for further evaluation of that after another fall evaluation in the ER included head CT neck CT chest x- ray all of which were fairly unremarkable. She is bacteremic with Staph aureus growing in her blood. Her main complaint today is back pain, her mental status is much improved today. # MSSA bacteremia unclear source. Appreciate ID consult, no obvious source found , although concerning MRI images for spine, unfortunately patient motion artifact present * Follow up repeat blood culture * MRI of the spine to rule out epidural abscess with sedation * Patient currently on Ancef # tachypnea with increased oxygen needs. reviewed chest x-ray which shows fluid overload. * Oxygen needs slightly improved but decreased breath sounds at the bases will give IV Lasix if blood pressure permits. # atrial tachycardia: Patient with intermittent tachycardia, discussed with Dr. Fuentes who feels this is not atrial fibrillation but likely an atrial tachycardia and does not need anticoagulation. Will still continue diltiazem for rate control. # diarrhea: Currently no stools and 4 days will follow # hypothyroidism, on replacement with normal TSH # hypertension stable, Subjective: Patient more alert today. Complains of low back pain. No abdominal pain. Mental status better but still slightly confused Objective: Vital Signs Temp Pulse Resp BP Pulse Ox 36.7 C 72 30 H 95/59 L 92 12/30/16 07:27 12/30/16 07:27 12/30/16 07:27 12/30/16 07:27 12/30/16 07:27 Microbiology 12/28/16 02:38 Urine Culture - Final Urine,Clean Catch Julissa Albicans Presumptive Three [place] Types 12/27/16 17:10 Blood Culture - Final Blood Staphylococcus Aureus Blood Panel (PCR) - Final S.aureus Methicillin Suscept. 12/27/16 17:10 Blood Culture - Final Blood Staphylococcus Aureus 12/28/16 12:10 Gastrointestinal Tract Panel (PCR) - Final Stool No Organism Detected Laboratory Results 12/30/16 04:57 12/30/16 04:57 12/29/16 12/30/1617 05:59 05:59 05:59 Intake Total 3570 1890 Balance 3570 1890 PT 21.9 SEC (12.0-15.0) H 12/27/16 20:33 INR 1.90 (0.83-1.16) H 12/27/16 20:33 - Physical Exam Constitutional: chronically ill appearing, uncomfortable Eyes: PERRL, EOMI Ears, Nose, Mouth, Throat: moist mucous membranes, hard of hearing Cardiovascular: regular rate and rhythym, no murmur, rub, or gallop Respiratory: no respiratory distress, reduced air movement ( bilateral bases left greater than right) Gastrointestinal: normoactive bowel sounds, No tenderness, No distension Genitourinary: no bladder fullness Skin: warm Musculoskeletal: generalized weakness Neurologic: No AAOx3 Psychiatric: interacting appropriately, not anxious, not encephalopathic ICD10 Worksheet Patient Problems: Problems Problem Status Onset Fever Acute Atrial fibrillation Acute
--- NOTE | 2016-12-30 11:19 | PCMIDPN ---
Assessment/Plan: Assessment/Plan: * MSSA bacteremia with possible epidural abscess: Blood cultures remain positive. Plans for MRI of spine with general anesthesia later today to further assess for epidural abscess; will also allow for better visualization of iliopsoas (will image lumbar and thoracic spine based on prior findings). Continue cefazolin. Repeat blood cultures in a.m. to assess for clearing of bacteremia which may be slower to clear in the setting of epidural abscess. TTE findings noted. Will hold off on FREDDY unless unable to clear bacteremia. 12/30/16 11:15 12/30/16 11:17 12/30/16 11:24 Subjective: Patient with low back pain. Scheduled for MRI of spine with general anesthesia later today. Objective: Vital Signs Temp Pulse Resp BP Pulse Ox 36.7 C 72 30 H 95/59 L 92 12/30/16 07:27 12/30/16 07:27 12/30/16 07:27 12/30/16 07:27 12/30/16 07:27 Microbiology 12/28/16 02:38 Urine Culture - Final Urine,Clean Catch Julissa Albicans Presumptive Three [place] Types 12/27/16 17:10 Blood Culture - Final Blood Staphylococcus Aureus Blood Panel (PCR) - Final S.aureus Methicillin Suscept. 12/27/16 17:10 Blood Culture - Final Blood Staphylococcus Aureus 12/28/16 12:10 Gastrointestinal Tract Panel (PCR) - Final Stool No Organism Detected Laboratory Results 12/30/16 04:57 12/30/16 04:57 12/29/16 12/30/16 12/31/16 05:59 05:59 05:59 Intake Total 3570 1890 Balance 3570 1890 C-Reactive Protein 264.7 mg/L (<10.0) H 12/30/16 04:57 Cefazolin # 2 Blood cultures 12/29/2016 1/2 sets GPCs in clusters - Physical Exam General Appearance: alert, no apparent distress EENT: No conjunctival petechiae Cardiac/Chest: irregularly irregular Extremities: other (Pain with range of motion of right hip), No inflammation Abdomen: non-tender, No distended Skin: No embolic lesions Neuro/Psych: No motor weakness ICD10 Worksheet Patient Problems: Problems Problem Status Onset Atrial fibrillation Acute Fever Acute
[2016-12-30] MEDS: LIOTHYRONINE SODIUM 5 MCG TAB PO SCH (11:48)
[2016-12-30] MEDS ORDERED: fentaNYL 100 MCG/2 ML INJ ONE (12:58)
[2016-12-30] MEDS ORDERED: MIDAZOLAM 2 MG/2 ML VIAL ONE (12:58)
[2016-12-30] MEDS ORDERED: GADOBUTROL 10 ML VIAL IVP ONE (14:56)
[2016-12-30] MEDS: CYANO/VITAMIN B12 1000 MCG TAB PO SCH (18:35)
[2016-12-30 21:22] LABS: INR 1.13 (0.83-1.16); PROTIME(PATIENT) 14.4 SEC (12.0-15.0)
[2016-12-30] MEDS: NS 1,000 ML IV SCH (23:15)
[2016-12-30] MEDS ORDERED: ALTEPLASE 2 MG VIAL IVP PRN (23:28)
[2016-12-31] MEDS: oxyCODONE IR 5 MG TAB PO PRN (02:25)
[2016-12-31] MEDS: DILTIAZEM 60 MG TAB PO SCH ×3 (03:43→20:25)
[2016-12-31] MEDS: ceFAZolin 2 GM/DEXTROSE 100 ML IV SCH ×3 (05:50→21:13)
[2016-12-31 06:04] LABS: % IMMATURE GRANULYOCYTES 1.2 % (0.0-1.1); ABSOLUTE IMMATURE GRANULOCYTES 0.14 10^3/uL (0.00-0.10); ADD DIFF? NO; ADD MORPH? NO; ADD SCAN? NO; ATYPICAL LYMPHOCYTE FLAG 30 (0-99); FRAGMENT RBC FLAG 0 (0-99); HEMATOCRIT 34.7 % (38.0-47.0); HEMOGLOBIN 11.8 g/dL (12.6-16.3); LEFT SHIFT FLG 20 (0-99); LIPEMIA HEMOLYSIS FLAG 90 (0-99); MEAN CELL HEMOGLOBIN 30.6 pg (27.9-34.1); MEAN CELL VOLUME 89.9 fL (81.5-99.8); MEAN PLATELET VOLUME 10.1 fL (8.7-11.7); PLATELET CLUMPS FLAG 0 (0-99); PLATELET COUNT 237 10^3/uL (150-400); RED BLOOD CELL COUNT 3.86 10^6/uL (4.18-5.33); RED CELL DISTRIBUTION WIDTH 14.9 % (11.5-15.2)
[2016-12-31 06:21] LABS: ALANINE AMINOTRANSFERASE 78 IU/L (9-52); ALBUMIN 2.3 g/dL (3.5-5.0); ALKALINE PHOSPHATASE 188 IU/L (38-126); ANION GAP 9 mEq/L (8-16); ASPARTATE AMINOTRANSFERASE 164 IU/L (14-46); BILIRUBIN,TOTAL 0.7 mg/dL (0.1-1.4); CALCIUM 7.9 mg/dL (8.5-10.4); CARBON DIOXIDE 21 mEq/l (22-31); CHLORIDE 101 mEq/L (97-110); CREATININE 0.9 mg/dL (0.6-1.0); GLOMERULAR FILTRATION RATE > 60; GLUCOSE 93 mg/dL (70-100); POTASSIUM 3.5 mEq/L (3.5-5.2); SODIUM 131 mEq/L (134-144); TOTAL PROTEIN 5.2 g/dL (6.3-8.2)
--- NOTE | 2016-12-31 06:50 | NEUSURGPN ---
Assessment/Plan: 81 y.o. F has epidural abscess, likely MSSA, extending from T8-L4 vertebral levels with leg weakness and myelopathy. Her strength is stable this morning. Plan laminectomies for abscess evacuation later today. Will decrease IV fluid rate to 75 mL/hr and add 20 mEq K based on AM labs. INR normalized per labs yesterday. Consents are signed and on chart. Remain in ICU for frequent neuro checks for now. Subjective: She complains of pain with movement. She feels tired. She states she has no appetite. No significant overnight events per nursing staff. Objective: Asleep but easily arousable. Answers questions appropriately and follows commands. Strength 2/5 B HFs, 4-/5 B KFs, KEs, DF, PF, and EHL Sensation intact to light touch BLE DTRs 3+/4 B patellae and Achilles Neuro Check Frequency: q2 hourly Urinary Catheter in Place: Yes Urinary Catheter Indication: Acute Urinary Retention Catheter Insertion Date: 12/30/16 - Physician Patient Seen by : Other (Dr. Johnson) Neurosurgery Physical Exam - Vitals, I&O, Labs I and O 12/30/16 12/31/16 01/01/17 05:59 05:59 05:59 Intake Total 1890 929 Output Total 2895 Balance 1889 -1965 Intake: Oral (ml) 1600 IV Infused (ml) 290 929 Ns 1,000 ml @ 125 mls/hr 50 929 IV CONT MACEY Rx#: [id number] ceFAZolin 2 GM/DEXTROSE 240 100 ml @ 200 mls/hr IV Q8HRS MACEY Rx#:[id number] Output: Urine (ml) 2895 Catheter 2895 Other: Intake Quantity Yes Sufficient Number of Voids Incontinence 2 1 Number of Stools Incontinence 3 Microbiology 12/28/16 02:38 Urine Culture - Final Urine,Clean Catch Julissa Albicans Presumptive Three [place] Types 12/27/16 17:10 Blood Culture - Final Blood Staphylococcus Aureus Blood Panel (PCR) - Final S.aureus Methicillin Suscept. 12/27/16 17:10 Blood Culture - Final Blood Staphylococcus Aureus Vital Signs Temp Pulse Resp BP Pulse Ox 36.9 C 80 23 H 118/61 93 12/31/16 06:00 12/31/16 06:00 12/31/16 06:00 12/31/16 06:00 12/31/16 06:00 Laboratory Results 12/31/16 05:40 12/31/16 05:40 ICD10 Worksheet Patient Problems: Problems Problem Status Onset Atrial fibrillation Acute Fever Acute
--- NOTE | 2016-12-31 07:00 | GCON ---
[f rep st] CONSULTATION DATE OF CONSULTATION: 12/30/2016 REQUESTING PHYSICIAN: Shaniqua Schmidt M.D. REASON FOR CONSULTATION: Spinal epidural abscess. CHIEF COMPLAINT: Leg weakness. HISTORY OF PRESENT ILLNESS: The patient is an 81-year-old woman with a history of hypertension, chronic kidney disease, and hypothyroidism, who was admitted to the inpatient hospitalist service 3 days ago with leg weakness, acute kidney injury, atrial fibrillation with rapid ventricular response vs sinus tachycardia , abnormal liver function tests, and systemic inflammatory response syndrome. Her problems first began approximately 3 weeks ago with several loose stools. She had also been having some shakes, chills, and overall malaise. Approximately 1 week ago, she fell to the ground and was unable to stand back up. She was in this state for approximately 4 hours before she was discovered by her daughter. Since then, her daughter states that she did regain some of her strength and was able to walk with a cane, which is her baseline, as well as climb and descend stairs. However, she continued to feel ill, and approximately 3 days ago, her legs became weak once again, to the point where she was unable to climb stairs or walk very well. She had been seeing her primary care physician as an outpatient, and it was noted that she had abnormal renal and liver function tests, and prior to her becoming weak again, this was going to be followed on an outpatient basis. Since being admitted to the hospital, she has been started on Ancef. She has also been started on diltiazem for rate control. Her creatinine level is trending back toward normal. She was noted to have an elevated white blood cell count, and MRI imaging of the spine was performed, these results are stated below. Based on MRI imaging, Neurosurgery was consulted for extensive epidural abscess in the thoracolumbar spine. PAST MEDICAL HISTORY: 1. Hypothyroidism. 2. Hypertension. 3. Chronic kidney disease. PAST SURGICAL HISTORY: 1. Abdominal hysterectomy. 2. Right total hip arthroplasty. 3. Right femoral neck surgery. OUTPATIENT MEDICATIONS: 1. Liothyronine. 2. Levothyroxine. 3. Cyanocobalamin. ALLERGIES: No known drug allergies. FAMILY HISTORY: There is a family history of degenerative spine disease in multiple relatives, but no history of immunocompromised states or other neurological issues. SOCIAL HISTORY: The patient lives independently in her own condo, but does get assistance from 2 adult children who live nearby. She does not smoke. She drinks alcohol occasionally. She does not use any other recreational drugs. REVIEW OF SYSTEMS: GENERAL: As stated, patient has had a feeling of malaise for the past 3 to 4 weeks. This has seemed to get somewhat better today after being on antibiotics in the hospital. HEAD, EYES, EARS, NOSE, THROAT: She denies any recent head trauma. She was somewhat confused, but again, this has cleared since she has been started on antibiotics. She wears glasses at baseline. She has not noted any recent visual changes. She does not note any hearing changes. She does not have any rhinorrhea or epistaxis. She denies any sore throat. She does state that she has a deviated septum. PULMONARY: She denies any shortness of breath. She does have a cough, which seems to get worse at night. CARDIOVASCULAR: She denies any chest pain, palpitations, or swelling in her extremities. ABDOMEN: She has noted that she has some mild abdominal pain, and has had diarrhea off and on for the past 3 to 4 weeks. : She has not noted any dysuria or urinary incontinence. ENDOCRINE: She denies any recent weight changes or temperature intolerance, excessive thirst or urination. HEMATOLOGIC: She has been having shakes and chills for the past 3 or 4 weeks, but has not noticed fevers. NEUROLOGIC: She denies this weakness in her legs, as in history of present illness. She denies any problems with her arms, or any sensory changes in her arms or legs. PSYCHIATRIC : She denies any depression, anxiety, or other mood disturbances. PHYSICAL EXAMINATION: GENERAL: The patient is a well-developed female who appears her recorded age. She is in no acute distress. VITAL SIGNS: Her most recently recorded vital signs are as follows: Temperature 37.3 degrees Celsius , heart rate 89 beats per minute, respiratory rate 28 breaths per minute, blood pressure 113/58 mm Hg. Her weight is 68.0 kg. HEENT: Head is normocephalic and atraumatic. Eyes: Conjunctivae are mildly injected and she has no scleral icterus. Ears: Her hearing is grossly intact. Nose: She has no rhinorrhea. Throat: She has no pharyngeal erythema. Respiratory: She has unlabored respirations with symmetric chest wall excursions. CARDIOVASCULAR: She has a regular rate and rhythm, with intact peripheral pulses. ABDOMEN: Soft and nontender. EXTREMITIES: She has no traumatic injury or deformity. She does have some pretibial edema. NEUROLOGIC: She is awake, alert, and oriented to herself, place, and to the month and year. She can appropriately state her age. Her pupils are equal, round, and reactive to light. Vision is grossly intact. Extraocular muscle movements are full and intact. Facial sensation and movements are full and symmetric. Hearing is grossly intact. Palate elevates symmetrically. Bilaterally shoulder shrug has 5/5 strength and tongue is midline. Her strength in bilateral upper extremities is 5/5 in bilateral deltoids, biceps, triceps, wrist extensors, finger abductors, sales account associate. Strength in lower extremities is 2/5 in bilateral hip flexors, 4/5 in right knee flexors and extensors, 4-/5 in left knee flexors and extensors, and 4/5 in bilateral dorsiflexion, plantar flexion, and extensor hallucis longus. Sensation is grossly intact to light touch throughout her entire body. Deep tendon reflexes are 2+/4 at bilateral biceps, triceps, brachioradialis, and are 3+/4 at bilateral patellae and Achilles. She has no Mason sign. She has no clonus at the ankles. Toes on the right side are downgoing. Toes on the left side are upgoing. LABORATORY DATA: Blood work from today includes a CBC, which is notable for elevated white blood cells at 15.24, which has been stable over the past 3 days. Hematocrit is 36.8, which is slightly down from admission hematocrit. Her platelet count is normal. Sodium is low at 130, which is down from 135 yesterday. Her creatinine is 0.8, and remainder of the basic metabolic panel is unremarkable. She had an elevated C-reactive protein level today of 264.7. She did not have liver function tests today, but yesterday her ALT and alkaline phosphatase were elevated at 59 and 144 respectively, which was stable, and total protein and albumin were both slightly low at 6.1 and 2.8 respectively, which was also stable compared to admission labs. Notably, she had an elevated INR of 1.9, an elevated APTT of 61.5 three days ago when she was admitted, it has not been rechecked since then. Blood cultures have been persistently positive for Methicillin-sensitive Staphylococcus aureus since admission. She had a TTE which did not demonstrate any valvular vegetations or intramural thrombi. Radiology: I have personally viewed images and read radiology reports for MRI of the lumbar spine without contrast done yesterday, as well as MRI of the thoracic and lumbar spine with and without contrast, which were completed today. These images demonstrate contrast enhancement of the dorsal epidural space between T6 and L4. There is an associated fluid collection, which extends from T8 to L4 vertebral levels, dorsal to the thecal sac and spinal cord. This is causing moderate to severe stenosis in the lower thoracic spine. This is in the setting of diffuse degenerative facet disease with ligamentum flavum thickening and degenerative disk disease in the lumbar spine. There is no evidence for diskitis or osteomyelitis in the thoracic or lumbar spine. There does appear to be degenerative disk and facet disease with ligamentum flavum thickening in the cervical spine as well, which is seen only on sagittal cuts of the thoracic spine MRI. ASSESSMENT AND PLAN: The patient is an 81-year-old woman, who was admitted to the hospital 3 days ago with multiple medical problems, as well as bilateral lower extremity weakness. Upon full evaluation, she has been determined to have Methicillin-sensitive Staphylococcus aureus bacteremia with systemic inflammatory response syndrome and spinal epidural abscess extending from the T8 to the L4 vertebral levels. She has been responding favorably to antibiotics , as well as fluid resuscitation. Her exam is notable for proximal more than distal leg weakness, as well as increased reflexes in the lower extremities only. These symptoms and exam findings are consistent with the spinal epidural abscess seen on MRI imaging. A long discussion was undertaken with the patient , her son, and daughter to explain the different treatment options. Given the neurologic deficits and extent of the epidural abscess, recommendation for a combination of surgery and IV antibiotics was made. This was with the understanding that she would be at higher risk for surgical and medical complications due to her age and other acute medical comorbidities. After this long discussion and some time for them to thi it over, they did decide that they would proceed with surgery, as recommended. This would consist of multiple laminectomies between the T8 and L4 levels, with evacuation of dorsal epidural abscess. Arrangements have been made to perform this tomorrow afternoon. We will recheck her INR prior to proceeding with surgery to make sure it is normalized. She will be made n.p.o. after midnight tonight. We will transfer her to the ICU for more frequent neurological check every 2 hours , and if she shows any sign of further strength decline, then we would do the surgery on a more emergent basis. The consents were discussed with and signed by the patient. The patient's plan was also discussed with Dr. Luis Antonio Martinez of the hospitalists' service. Neurosurgery will continue to follow closely at this time, and again, will proceed with surgery tomorrow. Please call with any changes, questions, or concerns. /[id number]/MODL MTDD
[2016-12-31] MEDS: NS W/ 20 KCl/L 1,000 ML IV SCH (07:17)
[2016-12-31] MEDS: LEVOTHYROXINE 112 MCG TAB PO SCH (08:34)
[2016-12-31] MEDS: CYANO/VITAMIN B12 1000 MCG TAB PO SCH (08:34)
[2016-12-31] MEDS: SENNOSIDES/DOCUSATE SODIUM TAB PO SCH ×3 (08:34→20:25)
[2016-12-31] MEDS: LIOTHYRONINE SODIUM 5 MCG TAB PO SCH (09:37)
--- NOTE | 2016-12-31 10:35 | PCMIDPN ---
Assessment/Plan: Assessment/Plan: 1. MSSA bacteremia/sepsis secondary to large epidural abscess: -Currently on Ancef therapy. - f/segundo blood cx still positive but not unexpected given above. will repeat blood cx again in AM. -MRI shows large epidural abscess from T8-L4 - Appreciate NSG eval and plans to take to OR later today. -Reviewed with patient and son at bedside recent lab and culture results, discussed importance of combined medical + surgical approach in controlling infection and fascilitating response to treatment. - Will likely need to re-evaluate right hip as well at some point to ensure no septic joint effusion/issues related to THR. -care coordinated with Rn. Discussed IV access situation. Meds ancef 2g q8-12/28/16 Subjective: AFebrile. appears more comfortable today than in past few days. still with back and LE weakness. Denies sob. Does feel like she needs to cough up phlegm but unable to do so. lionel abd pain. Loose stools. Objective: Vital Signs Temp Pulse Resp BP Pulse Ox 36.8 C 70 20 130/58 H 93 12/31/16 07:25 12/31/16 10:00 12/31/16 10:00 12/31/16 10:00 12/31/16 10:00 Microbiology 12/28/16 02:38 Urine Culture - Final Urine,Clean Catch Julissa Albicans Presumptive Three [place] Types 12/27/16 17:10 Blood Culture - Final Blood Staphylococcus Aureus Blood Panel (PCR) - Final S.aureus Methicillin Suscept. 12/27/16 17:10 Blood Culture - Final Blood Staphylococcus Aureus Laboratory Results 12/31/16 05:40 12/31/16 05:40 12/30/16 12/31/16 01/01/17 05:59 05:59 05:59 Intake Total 1890 929 Output Total 2895 Balance 1890 -1965 C-Reactive Protein 264.7 mg/L (<10.0) H 12/30/16 04:57 - Physical Exam General Appearance: alert, no apparent distress Respiratory: lungs clear Cardiac/Chest: regular rate, rhythm Extremities: No swelling Abdomen: normal bowel sounds, non-tender, soft, No distended Skin: No erythema - Time Spent With Patient Time Spent with Patient: greater than 35 minutes Time Spent with Patient: Greater than 35 minutes spent on this patients care, greater than 50% of time spent counseling, educating, and coordinating care regarding the above mentioned plan. ICD10 Worksheet Patient Problems: Problems Problem Status Onset Atrial fibrillation Acute Fever Acute
[2016-12-31] MEDS ORDERED: THROMBIN (BOVINE) 5,000 UNIT VIAL TP ONE (12:06)
[2016-12-31] MEDS ORDERED: BUPIVACAINE 0.25% 30 ML SDV ONE (12:06)
[2016-12-31] MEDS ORDERED: BACITRACIN 50,000 UNITS/10 ML SYR IRR ONE (12:07)
[2016-12-31] MEDS ORDERED: BUPIVACAINE/EPI 0.25% 30 ML SDV ONE (12:08)
[2016-12-31] MEDS ORDERED: DEPO METHYLPREDNISOLONE 40 MG/ML SDV ONE (12:09)
[2016-12-31] MEDS ORDERED: SURGIFLO MATRIX KIT WITH THROMBIN TP ONE (12:11)
[2016-12-31] MEDS ORDERED: VANCOMYCIN 1 GM VIAL ONE (13:00)
[2016-12-31] MEDS ORDERED: THROMBIN (BOVINE) 20,000 UNIT VIAL TP ONE (13:14)
--- NOTE | 2016-12-31 13:42 | PDANEPAE ---
ANE History of Present Illness 81 yo F here for I+D MSSA epidural abscess ANE Past Medical History - Cardiovascular History Hx Chest Pain: No - Pulmonary History Hx Oxygen in Use at Home: No Hx Sleep Apnea: No Sleep Apnea Screening Result - Last Documented: Negative - Endocrine History Hx Diabetes: No Hypothyroid: Yes - Chronic Pain History Chronic Pain: Yes (back pain) ANE Review of Systems - Exercise capacity Exercise capacity: >=4 METS ANE Patient History - Allergies Allergies/Adverse Reactions: No Known Allergies Allergy (Unverified 05/14/11 16:30) - Home Medications Home Medications: Cyanocobalamin [Vitamin B12 (*)] 1,000 mcg PO DAILY 12/27/16 [Last Taken ] Levothyroxine [Synthroid 112 mcg (*)] 112 mcg PO DAILY06 12/27/16 [Last Taken ] Liothyronine Sodium [Cytomel 5 mcg (*)] 5 mcg PO DAILY 12/27/16 [Last Taken 09/09] - NPO status NPO Status: no food or drink >8 hours NPO Since - Liquids (Date): 12/30/16 NPO Since - Liquids (Time): 23:59 NPO Since - Solids (Date): 12/30/16 NPO Since - Solids (Time): 23:59 - Anes Hx Anes Hx: no prior problems - Smoking Hx Smoking Status: Never smoked - Alcohol Use Alcohol Use: Rarely - Family Anes Hx Family Anes Hx: none ANE Labs/Vital Signs - Labs Result Diagrams: 12/31/16 05:40 12/31/16 05:40 - Vital Signs Blood Pressure: 109/53 Heart Rate: 75 Respiratory Rate: 24 O2 Sat (%): 94 Height: 170.18 cm Weight: 68.039 kg ANE Physical Exam - Airway Neck exam: decreased ROM Mallampati Score: Class 4 Mouth exam: poor dentition Mouth image: 1 - missing 2 - missing - Pulmonary Pulmonary: no respiratory distress - Cardiovascular Cardiovascular: regular rate and rhythym - ASA Status ASA Status: III ANE Anesthesia Plan Anesthesia Plan: general endotracheal anesthesia Lines/Monitors: arterial line, additional IV
[2016-12-31] MEDS ORDERED: fentaNYL 100 MCG/2 ML INJ ONE ×2 (14:01→17:29)
[2016-12-31] MEDS ORDERED: REMIFENTANIL HCL 1 MG VIAL ONE (14:01)
[2016-12-31] MEDS ORDERED: PROPOFOL 200 MG/20 ML VIAL ONE (14:02)
[2016-12-31] MEDS ORDERED: PROPOFOL/EMULSION 500 MG/50 ML BOTTLE IV ONE (14:02)
[2016-12-31] MEDS ORDERED: KETAMINE 100 MG/10 ML SYR ONE (14:02)
--- NOTE | 2016-12-31 14:03 | HOSPPROG ---
Hospitalist Progress Note Assessment/Plan: 81-year-old woman admitted with weakness and falls. She was admitted with a fall. Trauma evaluation was negative however blood cultures have since grown out MSSA. Evaluation has included MRI which revealed a large epidural abscess in the thoracic and lumbar spine. # MSSA bacteremia secondary to epidural abscess, neurosurgery has seen and evaluated her and plan on taking her to surgery this afternoon * Follow up repeat blood culture * Continue ancef per ID. # tachypnea with increased oxygen needs. Has some fluid overload and has since improved, continue to monitor oxygen needs as needed. # atrial tachycardia: Patient with intermittent tachycardia, discussed with Dr. Fuentes who feels this is not atrial fibrillation but likely an atrial tachycardia and does not need anticoagulation. Will start continue diltiazem for rate control. # diarrhea: Currently no stools and 4 days will follow # hypothyroidism, on replacement with normal TSH # hypertension stable, Subjective: Much more alert today, ongoing back pain. Objective: Vital Signs Temp Pulse Resp BP Pulse Ox 36.7 C 75 24 H 109/53 L 94 12/31/16 11:35 12/31/16 13:46 12/31/16 13:46 12/31/16 13:46 12/31/16 13:46 Microbiology 12/28/16 02:38 Urine Culture - Final Urine,Clean Catch Julissa Albicans Presumptive Three [place] Types Laboratory Results 12/31/16 05:40 12/31/16 05:40 12/30/16 12/31/16 01/01/17 05:59 05:59 05:59 Intake Total 1890 929 Output Total 2895 Balance 1890 -1966 PT 14.4 SEC (12.0-15.0) 12/30/16 21:05 INR 1.13 (0.83-1.16) 12/30/16 21:05 - Physical Exam Constitutional: chronically ill appearing, uncomfortable Eyes: PERRL Cardiovascular: regular rate and rhythym, systolic murmur Respiratory: no respiratory distress, reduced air movement Gastrointestinal: soft, non-tender abdomen Genitourinary: no bladder fullness Skin: warm Musculoskeletal: abnormal gait Neurologic: AAOx3, weakness Psychiatric: interacting appropriately, not anxious ICD10 Worksheet Patient Problems: Problems Problem Status Onset Fever Acute Atrial fibrillation Acute
[2016-12-31] MEDS ORDERED: LIDOCAINE 2% 100 MG/5 ML SYR ONE (14:08)
[2016-12-31] MEDS ORDERED: ceFAZolin 1 GM/5 ML SYR ONE (14:23)
[2016-12-31] MEDS ORDERED: POLYMYXIN B SULFATE 500,000 UNIT/10 ML SYR IRR ONE (14:24)
[2016-12-31] MEDS ORDERED: PHENYLEPHRINE 10 MG/ML SDV ONE (16:04)
[2016-12-31] MEDS ORDERED: fentaNYL 100 MCG/2 ML INJ IVP PRN (17:11)
[2016-12-31] MEDS ORDERED: MEPERIDINE 25 MG/ML SYR IVP PRN (17:11)
[2016-12-31] MEDS ORDERED: ONDANSETRON 4 MG/2 ML VIAL IVP PRN (17:11)
[2016-12-31] MEDS ORDERED: HYDROmorphONE/DILAUDID 1 MG/ML SYR IVP PRN ×2 (17:11)
[2016-12-31] MEDS ORDERED: NALOXONE HCL 0.4 MG/ML INJ IVP PRN (17:11)
--- NOTE | 2016-12-31 17:53 | POSTOPPROG ---
Post Op Note Date of Operation: 12/31/16 Surgeon: Alonzo Johnson Water [employer] Specialist: HARLAN Dias PAC Anesthesia: GET(General Endotracheal) Pre-op Diagnosis: Epidural abscess Post-op Diagnosis: Epidural abscess Indication: Episdural abscess with leg weakness Procedure: T9-T10 and L2-L3 laminectomy and washout Inf/Abcess present in the surg proc area at time of surgery?: Yes Depth: Deep Incisional (Fascial) EBL: 100 Drains: Pramod OLSEN Addendum - Addendum .: S: low back pain O: NAD 2/5 B HFs, 4-/5 B IL, DF, PF, and EHL A/P 81y/o female s/p T9/10 and L2/3 laminectomy and washout of epidural abscess -Advance diet as tolerated -Optimize pain management -NIECY x2 to thumb print suction -OR cultures pending -Post op MRI tomorrow -Continue Ancef per ID -Please notify NS with any change in neuro/motor exam
--- NOTE | 2016-12-31 20:47 | POSTANESTH ---
Post Anesthetic Evaluation Cardiovascular Status: Normal, Stable, Similar to Pre-Op Cond Respiratory Status: Normal, Stable, Similar to Pre-op Cond. Level of Consciousness/Mental Status: Can Participate in Eval, Alert and Oriented Pain Control: Adequate, Prn Tx Ordered Nausea/Vomiting Control: Adequate, Prn Tx Ordered Complications Possibly Related to Anesthesia: None Noted
[2016-12-31] MEDS: METHOCARBAMOL 750 MG TAB PO PRN (20:56)
--- NOTE | 2017-01-01 03:43 | GOP ---
[f rep st] OPERATIVE REPORT DATE OF OPERATION: 12/31/2016 NEUROSURGEON: Alonzo Johnson M.D. PRIMER INSERTING MACHINE ADJUSTER: Rafy Velarde M.D. ANESTHESIA: General endotracheal and local. PREOPERATIVE DIAGNOSES: 1. Thoracolumbar spinal epidural abscess. 2. Bilateral lower extremity myelopathy. POSTOPERATIVE DIAGNOSES: 1. Thoracolumbar spinal epidural abscess. 2. Bilateral lower extremity myelopathy. PROCEDURES PERFORMED: 1. Bilateral hemilaminectomies T9-T10 for evacuation of epidural abscess (CPT 45118). 2. Bilateral hemilaminectomies L2-3 for evacuation of epidural abscess (CPT 10350). FINDINGS: Purulent fluid in epidural space at both laminectomy sites and intervening segments. Purulent fluid in paraspinal soft tissues at right L3-4. There were no changes in MEPs or SSEPs throughout the operation. SPECIMENS: As noted, thoracic epidural swabs for aerobic and anaerobic cultures. Thoracic epidural soft tissue and T9 lamina for anaerobic, aerobic, fungal and AFB cultures. ESTIMATED BLOOD LOSS: 100 mL. INDICATIONS: The patient is an 81-year-old woman who has had acute onset of weakness in her legs over the past 3 weeks in the setting of shaking chills and malaise. She was admitted to [facility] where it was discovered she had an extensive spinal epidural abscess extending from approximately the T6 level down to the L4 level with fluid collection centered between T8 and L3 vertebral levels. On exam, she did have proximal more than distal leg weakness as well as increased reflexes with no other explanation other than the epidural abscess. Blood cultures have been positive for Methicillin-sensitive Staphylococcus aureus. After her medical condition had improved with antibiotics and fluid resuscitation, it was recommended that she undergo laminectomies for evacuation of epidural abscess to help treat this infection and to help restore her neurologic function. She and her family were agreeable. DESCRIPTION OF PROCEDURE: Prior to surgery, all of the details including indications, risks, benefits, alternatives, and expected recuperation were discussed with the patient and her family and consent forms were signed. Her low back was marked by the surgeon. She was brought to the operating room where general anesthesia was induced and she was intubated without complication. Neuromonitoring was established. She was then turned into prone position on the Pramod table. Spinal needles and C-arm fluoroscopy were used to localize the spinal levels. The patient was then prepped and draped in usual sterile fashion. Two incisions were then made, 1 centered over the T9-10 levels and 1 over the L2-3 levels. Both incisions were carried down to the dorsal fascia which was opened and the bilateral paraspinal muscles were removed from both sides of the spinous processes and laminae at these levels. There was spontaneous flow of purulent fluid in the right paraspinal soft tissues at the L3-4 level. After adequate exposure, fluoroscopy was again used to confirm the proper levels. Dr. Velarde assisted with the following portion of the operation. The high- speed drill was then used to make bilateral hemilaminectomies at T9 and T10 and the bone was removed and sent for cultures. There was spontaneous flow of purulent fluid from the epidural space. Swabs of this fluid from the thoracic area were sent for cultures. Some additional epidural fat and ligamentum flavum were removed to allow the fluid to drain more freely. This soft tissue was also sent for cultures. Attention was then turned to the L2-3 area and bilateral hemilaminectomies were made with the high-speed drill as well as Leksell rongeur and Kerrison punches. Again there was immediate return of purulent fluid from the epidural space. A ventricular catheter was then placed into the epidural space between the 2 laminectomy sites from thoracic to lumbar levels, and irrigation containing Bacitracin and Ancef was used to irrigate the epidural space. This was done several times until the fluid was clear. At this point, the thecal sac seemed decompressed and there was no further return of purulent fluid. Two NIECY drains were placed, 1 in each incision and brought out through separate stab incisions. Both incisions were then closed in layers using 0 Vicryl sutures in the fascia and 2-0 Vicryl in the superficial soft tissues. A layer of Dermabond skin glue was then placed on the skin surface. The drains were attached to suction bulbs then put to thumbprint suction. The drapes were removed and the patient was returned to supine position. She is being allowed to wake up from anesthesia, and it is expected that she will be extubated prior to leaving the OR. SECOND PRIMER INSERTING MACHINE ADJUSTER: 1. Ivan Shaw PA-C. 2. Nicole Dias PA-C. DRAINS: Round PVC 10-[place] NIECY drains x2, one in each incision. COMPLICATIONS: None apparent. DISPOSITION: Again, as expected, the patient will be extubated in the operating room and then taken to the ICU for further recovery. /[id number]/MODL MTDD
[2017-01-01] MEDS: DILTIAZEM 60 MG TAB PO SCH ×3 (04:12→20:14)
[2017-01-01] MEDS: ceFAZolin 2 GM/DEXTROSE 100 ML IV SCH ×3 (05:06→22:15)
--- NOTE | 2017-01-01 08:25 | NEUSURGPN ---
Date of Surgery: 12/31/16 Post Op Day: 1 Assessment/Plan: Assessment: 81 y/o female s/p T9/10 and L2/3 laminectomy and washout of epidural abscess POD #1 Plan: -pt states she has expected lower back pain -Advance diet as tolerated -Optimize pain management -NIECY x2 to thumb print suction -OR cultures pending -Post op MRI pending today -Continue Ancef per ID-changes of abx per ID -call with any questions -Please notify NS with any change in neuro/motor exam Subjective: Awake and alert. Pt with expected lower back and T spine pain. No edwards/cp/sob/ abd of gu complaints. No f/c/n/v/d. Objective: AAO x 3, PERRLA/EOMI no droop CN 2-12 grossly intact +lt touch 2/5 B HFs, 4-/5 B IL, DF, PF, and EHL Neuro Check Frequency: per routine Urinary Catheter in Place: Yes Urinary Catheter Indication: Surgical Requirement Catheter Insertion Date: 12/30/16 - Physician Discussed Patient with Dr.: Other (Alex) Patient Seen by Dr.: Other Rashmi) Neurosurgery Physical Exam - Vitals, I&O, Labs I and O 12/31/16 01/01/17 01/02/17 05:59 05:59 05:59 Intake Total 929 2340 Output Total 2895 1215 Balance -1966 1125 Weight 68.039 kg Intake: Oral (ml) 750 IV Intake (ml) 691 IV Infused (ml) 929 899 NS W/ 20 KCl/L 1,000 ml @ 899 75 mls/hr IV CONT MACEY Rx #:[id number] Ns 1,000 ml @ 125 mls/hr 929 IV CONT MACEY Rx#: [id number] Output: Urine (ml) 2895 1050 Catheter 2895 1050 NIECY Drain Output (ml) 165 #1 Posterior Back Pramod 45 Jonas #2 Posterior Back Pramod 120 Jonas Other: Number of Voids Incontinence 1 Vital Signs Temp Pulse Resp BP Pulse Ox 36.5 C 75 20 110/53 L 95 01/01/17 07:00 01/01/17 07:00 01/01/17 07:00 01/01/17 07:00 01/01/17 07:00 Laboratory Results 12/31/16 05:40 12/31/16 05:40 ICD10 Worksheet Patient Problems: Problems Problem Status Onset Atrial fibrillation Acute Fever Acute
[2017-01-01] MEDS: SENNOSIDES/DOCUSATE SODIUM TAB PO SCH ×2 (09:06→20:16)
[2017-01-01] MEDS: CYANO/VITAMIN B12 1000 MCG TAB PO SCH (09:07)
[2017-01-01] MEDS: LIOTHYRONINE SODIUM 5 MCG TAB PO SCH (09:07)
[2017-01-01] MEDS: LEVOTHYROXINE 112 MCG TAB PO SCH (09:07)
--- NOTE | 2017-01-01 09:14 | PCMIDPN ---
Assessment/Plan: # Sepsis secondary to MSSA bacteremia & large epidural abscess from T8-L4: S/p T9-T10 and L2-L3 laminectomy and washout 12/31/2016, doing well postoperatively , sepsis has resolved. Last fever was 12/29/2016. WBC trending down -- repeat blood cultures collected this morning 01/01/17. Will await negativity at 48 hours before placing PICC -- continue high-dose cefazolin -- called micro lab to try to sort out why cultures collected in OR yesterday are not injured correctly # elevated LFTs: Could consider cefazolin as etiology will continue to monitor --recheck LFTs tomorrow medications Cefazolin 2 g IV Q 8, #4 microbiology 12/27, 12/29 Blood cultures: MSSA 01/01/17 blood cultures 2 sets: pending Subjective: patient denies pain no specific complaints Objective: Vital Signs Temp Pulse Resp BP Pulse Ox 36.5 C 68 24 H 101/38 L 1 L 01/01/17 07:00 01/01/17 08:00 01/01/17 08:00 01/01/17 08:00 01/01/17 08:00 Laboratory Results 12/31/16 05:40 12/31/16 05:40 12/31/16 01/01/17 01/02/17 05:59 05:59 05:59 Intake Total 929 2340 Output Total 2895 1215 Balance -1966 1125 C-Reactive Protein 264.7 mg/L (<10.0) H 12/30/16 04:57 Laboratory Tests 12/29/16 12/31/16 04:40 05:40 AST 38 164 H ALT 59 H 78 H Alkaline Phosphatase 144 H 188 H general: Nontoxic-appearing woman sitting up in bed no acute distress HEENT: No conjunctival hemorrhages, pale, no oral ulcerations or exudate neck: Supple Cardiovascular regular rate and rhythm Chest: Breathing easy, no crackles or wheezes abdomen: Soft nontender back: 2 NIECY drains with serosanguineous fluid, no purulence : Delgadillo in place lines: PIV right forearm, left radial a line C/D/I ICD10 Worksheet Patient Problems: Problems Problem Status Onset Atrial fibrillation Acute Fever Acute
[2017-01-01] MEDS ORDERED: fentaNYL 100 MCG/2 ML INJ IVP ONE (13:41)
[2017-01-01] MEDS ORDERED: LORazepam 2 MG/ML INJ IVP ONE (13:42)
[2017-01-01] MEDS ORDERED: MIDAZOLAM 2 MG/2 ML VIAL IVP ONE (14:32)
[2017-01-01] MEDS ORDERED: FLUMAZENIL 0.5 MG/5 ML MDV IVP ONE (14:33)
[2017-01-01] MEDS ORDERED: NALOXONE HCL 0.4 MG/ML INJ ONE (14:34)
--- NOTE | 2017-01-01 14:46 | GCON ---
[f rep st] CONSULTATION PULMONARY/CRITICAL CARE CONSULTATION DATE OF CONSULTATION: 01/01/2017 REFERRING PHYSICIAN: Shaniqua Schmidt MD REASON FOR REFERRAL: Evaluation and management of anemia and sepsis. HISTORY OF PRESENT ILLNESS: The patient is an 81-year-old woman, who had the onset of some diarrhea about a month ago. About a week ago, she had a fall and weakness. She was seen by her primary car e physician, and was found to have some acute kidney injury as well as tachycardia. She continued t o have weakness, and also had some chills and reduced energy. She was admitted to the hospital on A with these symptoms, and blood cultures were positive for MSSA. This led to an evaluation , which included an MRI of the spine, which demonstrated an epidural abscess between T6 and L4. She was then taken to the operating room by Dr. Chu, who performed a laminectomy and drainage of t he abscess. The intraoperative course was unremarkable with good (but probably incomplete) drainage of the abscess. The patient had some weakness in her legs, which has improved somewhat after surge ry. She reports good pain control. She has had a return of her appetite. Has not had nausea or vo miting. PAST MEDICAL HISTORY: 1. Hypertension. 2. Chronic kidney disease, creatinine 1.4. 3. Hypothyroid. MEDICATIONS: At the time of admission included levothyroxine and cyanocobalamin. Medications currently include Ancef, diltiazem, fentanyl, lorazepam, oxycodone. ALLERGIES: None. SOCIAL HISTORY: The patient lives alone. She does not smoke, and drinks infrequently. LABORATORY: White blood count is 11.7, down from 14.5 at admission; hemoglobin is 11.8, down from 1 5.0 at admission. INR is 1.1. Chemistry group shows a sodium of 131, down from 134; her carbon man xide level is 21, up from a low of 16; creatinine is 0.9. An AST is 164, with an ALT of 78, and alk fuentes phosphatase is 188. A C-reactive protein is 265. An albumin is 2.3. Venous lactate at the t suad of admission was 1.3. Multiple blood cultures are positive for MSSA on December 27 and December h. Subsequent cultures are negative/pending. IMAGING: A chest x-ray shows small pleural effusions and interstitial edema, with atelectasis in th e right base. Images reviewed. An echocardiogram shows an ejection fraction of 55% to 60%, and no other remarkable abnormalities. ASSESSMENT: 1. Sepsis. The patient had some mild hypotension, elevated white blood count, and fever in the set ting of positive blood cultures and an epidural abscess. Her symptoms have improved with several da ys of antibiotics, as well as drainage of the abscess. 2. Epidural abscess. Blood cultures have grown methicillin-susceptible Staphylococcus aureus. Rep eat blood cultures on December 29 were positive. Blood cultures repeated today are pending. The pat ient is currently being appropriately treated with cefazolin, and followed by Infectious Disease. 3. Anemia. This is mild and occurred primarily after surgery, likely representing some blood loss as well as dilution due to fluid resuscitation perioperatively. 4. History of hypertension. RECOMMENDATIONS: 1. Follow hemoglobin. 2. Continue antibiotics. Await followup blood cultures. 3. Increase activity as tolerated. 4. The patient can probably be transferred to a medical/surgical floor. /[id number]/MODL
[2017-01-01] MEDS ORDERED: GADOBUTROL 10 ML VIAL IVP ONE (14:47)
--- NOTE | 2017-01-01 17:18 | HOSPPROG ---
Hospitalist Progress Note Assessment/Plan: 81-year-old woman admitted with weakness and falls. She was admitted with a fall. Trauma evaluation was negative however blood cultures have since grown out MSSA. Evaluation has included MRI which revealed a large epidural abscess in the thoracic and lumbar spine. # Sepsis 2/2 MSSA bacteremia and epidural abscess - tachycardia and leukocytosis on admit improving- WBC 11 this am - continue IV abx # MSSA bacteremia secondary to epidural abscess- MRI thoracic spine ( persoanlly reviewed adn interpreted) with epidural abscess and enhancement T6-T7 s/p laminectomy and drainage of abscess - POD#1 -Continue IV ancef per ID - post- surgical care per NSG - MRI pending today # Anemia 2/2 acute blood loss - hgb 11 this am - no active bleeding post-op - follow h&H # tachypnea with increased oxygen needs- Had some fluid overload and has since improved oxygen saturations 96% on 2L - continue to monitor oxygen needs as needed. # atrial tachycardia: Patient with intermittent tachycardia, discussed with Dr. Fuentes who feels this is not atrial fibrillation but likely an atrial tachycardia and does not need anticoagulation. Currently rate controlled - continue diltiazem # diarrhea: Currently no stools and 4 days will follow # hypothyroidism, on replacement with normal TSH # hypertension stable, # diet - regular # proph - enoxaparin per NSG # dispo -> 2mn as requiring close post-op monitoring and IV abx I have discussed the case with Dr. Oates pt doing well post-op stable for floor transfer Subjective: appetite is good Objective: Vital Signs Temp Pulse Resp BP Pulse Ox 36.5 C 74 16 103/46 L 97 01/01/17 07:00 01/01/17 16:00 01/01/17 16:00 01/01/17 16:00 01/01/17 16:00 Microbiology 12/31/16 16:17 Gram Stain - Final Other - Tissue 12/31/16 09:46 Gram Stain - Final Other - Tissue 12/31/16 09:46 Gram Stain - Final Other - Tissue 12/31/16 16:17 Gram Stain - Final Other - Tissue Anaerobic Culture - Final Laboratory Results 12/31/16 05:40 12/31/16 05:40 12/31/16 01/01/17 01/02/17 05:59 05:59 05:59 Intake Total 929 2340 Output Total 2895 1215 47 Balance -1966 1125 -47 PT 14.4 SEC (12.0-15.0) 12/30/16 21:05 INR 1.13 (0.83-1.16) 12/30/16 21:05 - Physical Exam Constitutional: no apparent distress Eyes: anicteric sclera Ears, Nose, Mouth, Throat: moist mucous membranes Cardiovascular: regular rate and rhythym Respiratory: no respiratory distress, no rales or rhonchi Gastrointestinal: normoactive bowel sounds, soft, non-tender abdomen Genitourinary: no bladder fullness Musculoskeletal: No asymmetric calves Neurologic: AAOx3 Lymph, Heme, Immunologic: no cervical LAD ICD10 Worksheet Patient Problems: Problems Problem Status Onset Atrial fibrillation Acute Fever Acute
[2017-01-01] MEDS: OXYCODONE/APAP 5/325 TAB PO PRN (22:17)
[2017-01-02 03:35] LABS: HEMATOCRIT 27.7 % (38.0-47.0); HEMOGLOBIN 9.6 g/dL (12.6-16.3); MEAN CELL HEMOGLOBIN 31.4 pg (27.9-34.1); MEAN CELL HEMOGLOBIN CONCENTR. 34.7 g/dL (32.4-36.7); MEAN CELL VOLUME 90.5 fL (81.5-99.8); RED BLOOD CELL COUNT 3.06 10^6/uL (4.18-5.33)
[2017-01-02] MEDS: DILTIAZEM 60 MG TAB PO SCH ×3 (03:42→19:24)
[2017-01-02] MEDS: NS W/ 20 KCl/L 1,000 ML IV SCH (03:46)
[2017-01-02] MEDS: ceFAZolin 2 GM/DEXTROSE 100 ML IV SCH ×3 (05:31→21:38)
--- NOTE | 2017-01-02 07:44 | NEUSURGPN ---
Date of Surgery: 12/31/16 Post Op Day: 2 Assessment/Plan: Assessment: 81 y/o female s/p T9/10 and L2/3 laminectomy and washout of epidural abscess POD #2 Plan: -pt states she has expected lower back pain -Optimize pain management -NIECY x2 to thumb print suction-drainage decreasing, will leave both in for now -OR cultures still pending -Post op MRI shows resolving abscess -Continue Ancef per ID-changes of abx per ID -Patients daughter has great concern regarding her post hospital care. Patient lives in [address], ensured that case management and PT/OT will make rec placement. -call with any questions -Please notify NS with any change in neuro/motor exam Patient seen and discussed with Dr Johnson Subjective: Subjective: Awake and alert Pt with expected lower back and T spine pain. Objective: AAO x 3 PERRLA/EOMI no droop CN 2-12 grossly intact +lt touch 4/5 IL, DF, PF, and EHL-RLE 5/5 LLE NIECY x2 Incision CDI Neuro Check Frequency: per routine Urinary Catheter in Place: Yes Urinary Catheter Indication: Surgical Requirement Catheter Insertion Date: 12/30/16 - Physician Discussed Patient with Dr.: Other (Dr Johnson) Patient Seen by Dr.: Other (Dr Johnson) Neurosurgery Physical Exam - Vitals, I&O, Labs I and O 01/01/17 01/02/17 01/03/17 05:59 05:59 05:59 Intake Total 2340 2190 Output Total 1215 1092 Balance 1125 1098 Weight 68.039 kg Intake: Oral (ml) 750 1040 IV Intake (ml) 691 IV Infused (ml) 899 1150 NS W/ 20 KCl/L 1,000 ml @ 899 1150 75 mls/hr IV CONT MACEY Rx #:[id number] Output: Urine (ml) 1050 1000 Catheter 1050 1000 NIECY Drain Output (ml) 165 92 #1 Posterior Back Pramod 45 17 Jonas #2 Posterior Back Pramod 120 75 Jonas Other: Intake Quantity Yes Sufficient Microbiology 12/31/16 16:17 Gram Stain - Final Other - Tissue 12/31/16 09:46 Gram Stain - Final Other - Tissue 12/31/16 09:46 Gram Stain - Final Other - Tissue 12/31/16 16:17 Gram Stain - Final Other - Tissue Anaerobic Culture - Final Vital Signs Temp Pulse Resp BP Pulse Ox 36.9 C 57 L 24 H 110/47 L 94 01/02/17 04:00 01/02/17 06:00 01/02/17 06:00 01/02/17 06:00 01/02/17 06:00 Laboratory Results 01/02/17 03:30 12/31/16 05:40 ICD10 Worksheet Patient Problems: Problems Problem Status Onset Atrial fibrillation Acute Fever Acute
[2017-01-02] MEDS: CYANO/VITAMIN B12 1000 MCG TAB PO SCH (09:40)
[2017-01-02] MEDS: LIOTHYRONINE SODIUM 5 MCG TAB PO SCH (09:40)
[2017-01-02] MEDS: LEVOTHYROXINE 112 MCG TAB PO SCH (09:40)
[2017-01-02] MEDS: SENNOSIDES/DOCUSATE SODIUM TAB PO SCH ×2 (09:41→19:25)
--- NOTE | 2017-01-02 09:41 | PCMIDPN ---
Assessment/Plan: Assessment: MSSA bacteremia secondary to large epidural abscess. Patient is doing well on high-dose cefazolin. Leukocytosis is improved. No further data on mild transaminase elevation. Plan: 1. Continue high-dose cefazolin. Plan for 8 weeks of therapy status post drainage. 2. Continue monitoring mild transaminitis. 3. Follow clinical course. 01/03/17 08:43 01/03/17 08:43 01/03/17 08:44 Subjective: Patient is resting in her hospital bed. She has no new complaints. Able to be woken with little difficulty. Denies fevers or chills. Objective: Cefazolin # 5 Vital Signs Temp Pulse Resp BP Pulse Ox 36.9 C 57 L 24 H 110/47 L 94 01/02/17 04:00 01/02/17 06:00 01/02/17 06:00 01/02/17 06:00 01/02/17 06:00 Microbiology 12/31/16 16:20 Gram Stain - Final Back - Tissue 12/31/16 16:17 Gram Stain - Final Other - Tissue 12/31/16 09:46 Gram Stain - Final Other - Tissue 12/31/16 09:46 Gram Stain - Final Other - Tissue 12/31/16 16:17 Gram Stain - Final Other - Tissue Anaerobic Culture - Final Laboratory Results 01/02/17 03:30 12/31/16 05:40 01/01/17 01/02/17 01/03/17 05:59 05:59 05:59 Intake Total 2340 2190 Output Total 1215 1092 Balance 1125 1098 C-Reactive Protein 264.7 mg/L (<10.0) H 12/30/16 04:57 - Physical Exam General Appearance: WD/WN, alert, no apparent distress, non-toxic Respiratory: lungs clear, normal breath sounds, No respiratory distress Cardiac/Chest: regular rate, rhythm, No tachycardia Skin: normal color, warm/dry, No rash Neuro/Psych: alert, normal mood/affect, oriented x 3 ICD10 Worksheet Patient Problems: Problems Problem Status Onset Atrial fibrillation Acute Fever Acute
[2017-01-02] MEDS: OXYCODONE/APAP 5/325 TAB PO PRN (10:56)
--- NOTE | 2017-01-02 16:04 | HOSPPROG ---
Hospitalist Progress Note Assessment/Plan: 81-year-old woman admitted with weakness and falls. She was admitted with a fall. Trauma evaluation was negative however blood cultures have since grown out MSSA. Evaluation has included MRI which revealed a large epidural abscess in the thoracic and lumbar spine. # Sepsis 2/2 MSSA bacteremia and epidural abscess - tachycardia and leukocytosis on admit improving- WBC 9 this am - continue IV abx - no need for ongoing IVF a patient taking adequate p.o. # MSSA bacteremia secondary to epidural abscess- MRI thoracic spine ( personally reviewed adn interpreted) improving epidural abscess s/p laminectomy and drainage of abscess - POD#1 -Continue IV ancef per ID - post- surgical care per NSG # Anemia 2/2 acute blood loss - hgb 11 -> 9 this am - no active bleeding - potentially dilution with post-op fluids - follow h&H # tachypnea with increased oxygen needs- Had some fluid overload - now resolved oxygen saturations 96% on 2L - continue to monitor oxygen needs as needed. # atrial tachycardia: Patient with intermittent tachycardia, discussed with Dr. Fuentes who feels this is not atrial fibrillation but likely an atrial tachycardia and does not need anticoagulation. Telemetry (personally reviewed and interpreted) sinus rhythm rate controlled - continue PO diltiazem # Hyponatremia - suspect 2/2 fluids post-op - dc IVF - follow in am # diarrhea: Currently no stools and 4 days will follow # hypothyroidism, on replacement with normal TSH # hypertension stable, # diet - regular # proph - enoxaparin per NSG # dispo -> 2mn as requiring close post-op monitoring and IV abx I have discussed the case with Dr. Oates - will transfer patient to medical floor today Subjective: no SOB or CP Objective: Vital Signs Temp Pulse Resp BP Pulse Ox 36.9 C 57 L 24 H 110/47 L 94 01/02/17 04:00 01/02/17 06:00 01/02/17 06:00 01/02/17 06:00 01/02/17 06:00 Microbiology 12/31/16 16:20 Gram Stain - Final Back - Tissue 12/31/16 09:46 Gram Stain - Final Other - Tissue 12/31/16 09:46 Gram Stain - Final Other - Tissue 12/31/16 16:17 Gram Stain - Final Other - Tissue 12/31/16 16:17 Gram Stain - Final Other - Tissue Anaerobic Culture - Final Laboratory Results 01/02/17 03:30 12/31/16 05:40 01/01/17 01/02/17 01/03/17 05:59 05:59 05:59 Intake Total 2340 2190 Output Total 1215 1092 Balance 1125 1098 PT 14.4 SEC (12.0-15.0) 12/30/16 21:05 INR 1.13 (0.83-1.16) 12/30/16 21:05 - Physical Exam Constitutional: appears nourished Eyes: anicteric sclera Ears, Nose, Mouth, Throat: moist mucous membranes Cardiovascular: regular rate and rhythym Respiratory: no respiratory distress, no rales or rhonchi Gastrointestinal: normoactive bowel sounds, soft, non-tender abdomen Genitourinary: no bladder fullness Skin: warm, normal color Musculoskeletal: No asymmetric calves Neurologic: AAOx3 Psychiatric: interacting appropriately Lymph, Heme, Immunologic: no cervical LAD ICD10 Worksheet Patient Problems: Problems Problem Status Onset Atrial fibrillation Acute Fever Acute
[2017-01-02] MEDS: oxyCODONE IR 5 MG TAB PO PRN ×2 (18:18→21:38)
[2017-01-02] MEDS: METHOCARBAMOL 750 MG TAB PO PRN (21:38)
[2017-01-03] MEDS: oxyCODONE IR 5 MG TAB PO PRN ×3 (02:26→21:15)
[2017-01-03] MEDS: DILTIAZEM 60 MG TAB PO SCH ×3 (05:16→21:13)
[2017-01-03] MEDS: ceFAZolin 2 GM/DEXTROSE 100 ML IV SCH (05:18)
[2017-01-03 06:03] LABS: POTASSIUM 3.8 mEq/L (3.5-5.2)
[2017-01-03 06:04] LABS: ANION GAP 6 mEq/L (8-16); CALCIUM 7.8 mg/dL (8.5-10.4); CARBON DIOXIDE 22 mEq/l (22-31); CHLORIDE 99 mEq/L (97-110); CREATININE 0.8 mg/dL (0.6-1.0); GLOMERULAR FILTRATION RATE > 60; GLUCOSE 99 mg/dL (70-100); SODIUM 127 mEq/L (134-144)
--- NOTE | 2017-01-03 07:24 | NEUSURGPN ---
Date of Surgery: 12/31/16 Post Op Day: 3 Assessment/Plan: Assessment: 81 y/o female s/p T9/10 and L2/3 laminectomy and washout of epidural abscess POD #3 Plan: -Optimize pain management- controlled on oral medications -NIECY x2 to thumb print suction-drainage decreasing -Post op MRI shows resolving abscess -Continue Ancef per ID -call with any questions -Please notify NS with any change in neuro/motor exam Subjective: Having localized back pain, controlled. No LE numbness or pain Objective: AAO x 3 PERRLA/EOMI no droop CN 2-12 grossly intact +lt touch 4/5 IL, DF, PF, and EHL-RLE 5/5 LLE NIECY x2 Incision CDI Catheter Insertion Date: 12/30/16 - Physician Discussed Patient with Dr.: Other (Alex) Neurosurgery Physical Exam - Vitals, I&O, Labs I and O 01/02/17 01/03/17 01/04/17 05:59 05:59 05:59 Intake Total 2190 1600 Output Total 1092 1528 Balance 1098 72 Intake: Oral (ml) 1040 1500 IV Infused (ml) 1150 100 NS W/ 20 KCl/L 1,000 ml @ 1150 75 mls/hr IV CONT [facility] Rx #:[id number] ceFAZolin 2 GM/DEXTROSE 100 100 ml @ 200 mls/hr IV Q8HRS [facility] Rx#:[id number] Output: Urine (ml) 1000 1450 Catheter 1000 1450 NIECY Drain Output (ml) 92 78 #1 Posterior Back Pramod 17 6 Jonas #2 Posterior Back Pramod 75 72 Jonas Other: Intake Quantity Yes Sufficient Microbiology 12/31/16 09:46 Gram Stain - Final Other - Tissue 12/31/16 16:20 Gram Stain - Final Back - Tissue 12/31/16 09:46 Gram Stain - Final Other - Tissue 12/31/16 16:17 Gram Stain - Final Other - Tissue Vital Signs Temp Pulse Resp BP Pulse Ox 36.8 C 85 19 103/54 L 88 L 01/02/17 23:33 01/03/17 05:16 01/02/17 23:45 01/03/17 05:16 01/02/17 23:45 Laboratory Results 01/02/17 03:30 01/03/17 05:38 ICD10 Worksheet Patient Problems: Problems Problem Status Onset Atrial fibrillation Acute Fever Acute
[2017-01-03] MEDS: LIOTHYRONINE SODIUM 5 MCG TAB PO SCH (07:34)
[2017-01-03] MEDS: LEVOTHYROXINE 112 MCG TAB PO SCH (07:34)
[2017-01-03] MEDS: SENNOSIDES/DOCUSATE SODIUM TAB PO SCH ×2 (08:16→21:15)
[2017-01-03] MEDS: CYANO/VITAMIN B12 1000 MCG TAB PO SCH (08:17)
[2017-01-03] MEDS: ENOXAPARIN 40 MG/0.4 ML SYR SC SCH (11:56)
--- NOTE | 2017-01-03 12:32 | PCMIDPN ---
Assessment/Plan: # Sepsis secondary to MSSA bacteremia & large epidural abscess from T8-L4: S/p T9-T10 and L2-L3 laminectomy and washout 12/31/2016, doing well postoperatively , sepsis has resolved. WBC not checked today --DC cefazolin --change to nafcillin for [employer]ER penetration with known epidural abscess --will need 8 weeks of therapy from surgery date # elevated LFTs 12/31 --recheck LFTs tomorrow medications Cefazolin 2 g IV Q 8, #6 microbiology 12/27, 12/29 Blood cultures: MSSA 01/01 blood cultures 2 sets: NGTD 12/31 surgical cx including epidural abscess: MSSA Subjective: no c/o denies diarrhea, rash, itching Objective: Vital Signs Temp Pulse Resp BP Pulse Ox 36.8 C 85 19 98/71 L 88 L 01/02/17 23:33 01/03/17 11:56 01/02/17 23:45 01/03/17 11:56 01/02/17 23:45 Microbiology 12/31/16 16:17 Gram Stain - Final Other - Tissue 12/31/16 09:46 Gram Stain - Final Other - Tissue 12/31/16 09:46 Gram Stain - Final Other - Tissue 12/31/16 16:20 Gram Stain - Final Back - Tissue Laboratory Results 01/02/17 03:30 01/03/17 05:38 01/02/17 01/03/17 01/04/17 05:59 05:59 05:59 Intake Total 2190 1600 Output Total 1092 1528 Balance 1098 72 C-Reactive Protein 264.7 mg/L (<10.0) H 12/30/16 04:57 - Physical Exam General Appearance: alert, no apparent distress EENT: dry mucous membranes Respiratory: lungs clear, No accessory muscle use Cardiac/Chest: regular rate, rhythm Extremities: pedal edema Abdomen: normal bowel sounds, non-tender, soft Skin: pallor, No diaphoresis, No rash Neuro/Psych: alert ICD10 Worksheet Patient Problems: Problems Problem Status Onset Atrial fibrillation Acute Fever Acute
[2017-01-03] MEDS: NAFCILLIN SODIUM 2 GM in D5W 100 ML IV SCH ×3 (14:04→21:16)
--- NOTE | 2017-01-03 15:23 | HOSPPROG ---
Hospitalist Progress Note Assessment/Plan: 81-year-old woman admitted with weakness and falls. She was admitted with a fall. Trauma evaluation was negative however blood cultures have since grown out MSSA. Evaluation has included MRI which revealed a large epidural abscess in the thoracic and lumbar spine. # Sepsis 2/2 MSSA bacteremia and epidural abscess - tachycardia and leukocytosis on admit improving- WBC 9 - continue IV abx - no need for ongoing IVF a patient taking adequate p.o. # MSSA bacteremia secondary to epidural abscess- MRI thoracic spine ( personally reviewed and interpreted) improving epidural abscess s/p laminectomy and drainage of abscess - POD#3 - cultures from OR are growing Staph aureus - Continue IV ancef - post- surgical care per NSG # Anemia 2/2 acute blood loss - hgb 11 -> 9 - no active bleeding - potentially dilution with post-op fluids - follow h&H # tachypnea with increased oxygen needs- Had some fluid overload - now resolved oxygen saturations 92% on room air - continue to monitor oxygen needs as needed. # atrial tachycardia: Patient with intermittent tachycardia, discussed with Dr. Fuentes who feels this is not atrial fibrillation but likely an atrial tachycardia and does not need anticoagulation. 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 # diarrhea- resolved # hypothyroidism, on replacement with normal TSH # hypertension stable, # diet - regular # proph - starting enoxaparin # dispo -> 2mn as requiring close post-op monitoring and IV abx I have discussed the case with RN - fluids continued overnight even though orders DC. Suspect this is the cause for dropping sodium will discontinue today and encourage normal p.o. Subjective: Feels weak Objective: Vital Signs Temp Pulse Resp BP Pulse Ox 36.8 C 85 19 98/71 L 88 L 01/02/17 23:33 01/03/17 11:56 01/02/17 23:45 01/03/17 11:56 01/02/17 23:45 Microbiology 12/31/16 16:20 Gram Stain - Final Back - Tissue 12/31/16 16:17 Gram Stain - Final Other - Tissue 12/31/16 09:46 Gram Stain - Final Other - Tissue 12/31/16 09:46 Gram Stain - Final Other - Tissue Laboratory Results 01/02/17 03:30 01/03/17 05:38 01/02/17 01/03/17 01/04/17 05:59 05:59 05:59 Intake Total 2190 1600 Output Total 1092 1528 Balance 1098 72 PT 14.4 SEC (12.0-15.0) 12/30/16 21:05 INR 1.13 (0.83-1.16) 12/30/16 21:05 - Physical Exam Constitutional: chronically ill appearing Eyes: anicteric sclera Ears, Nose, Mouth, Throat: moist mucous membranes Cardiovascular: regular rate and rhythym, systolic murmur Respiratory: no respiratory distress, no rales or rhonchi Gastrointestinal: normoactive bowel sounds Genitourinary: no bladder fullness Skin: warm, normal color Musculoskeletal: No asymmetric calves Neurologic: AAOx3 Psychiatric: flat affect Lymph, Heme, Immunologic: no cervical LAD ICD10 Worksheet Patient Problems: Problems Problem Status Onset Atrial fibrillation Acute Fever Acute
[2017-01-03] MEDS ORDERED: ALTEPLASE 2 MG VIAL IVP PRN (17:13)
[2017-01-04] MEDS: NAFCILLIN SODIUM 2 GM in D5W 100 ML IV SCH ×6 (04:15→21:27)
[2017-01-04 05:25] LABS: HEMATOCRIT 29.2 % (38.0-47.0); MEAN CELL HEMOGLOBIN 30.9 pg (27.9-34.1); MEAN CELL HEMOGLOBIN CONCENTR. 34.2 g/dL (32.4-36.7); MEAN CELL VOLUME 90.1 fL (81.5-99.8); RED BLOOD CELL COUNT 3.24 10^6/uL (4.18-5.33); RED CELL DISTRIBUTION WIDTH 14.6 % (11.5-15.2)
[2017-01-04] MEDS: DILTIAZEM 60 MG TAB PO SCH ×3 (05:25→21:27)
[2017-01-04 05:41] LABS: ALANINE AMINOTRANSFERASE 26 IU/L (9-52); ALBUMIN 1.8 g/dL (3.5-5.0); ALKALINE PHOSPHATASE 114 IU/L (38-126); ANION GAP 5 mEq/L (8-16); ASPARTATE AMINOTRANSFERASE 27 IU/L (14-46); BILIRUBIN,TOTAL 1.1 mg/dL (0.1-1.4); BILIRUBIN-CONJUGATED 0.6 mg/dL (0.0-0.5); BILIRUBIN-UNCONJUGATED 0.5 mg/dL (0.0-1.1); CALCIUM 7.6 mg/dL (8.5-10.4); CARBON DIOXIDE 23 mEq/l (22-31); CHLORIDE 98 mEq/L (97-110); CREATININE 0.9 mg/dL (0.6-1.0); GLOMERULAR FILTRATION RATE > 60; GLUCOSE 111 mg/dL (70-100); POTASSIUM 3.8 mEq/L (3.5-5.2); SODIUM 126 mEq/L (134-144); TOTAL PROTEIN 4.6 g/dL (6.3-8.2)
--- NOTE | 2017-01-04 06:49 | NEUSURGPN ---
Date of Surgery: 12/31/16 Post Op Day: 4 Assessment/Plan: Assessment: 81 y/o female s/p T9/10 and L2/3 laminectomy and washout of epidural abscess POD #4 Plan: -s/p T-L lami-pt with improving pain and improving strength -Optimize pain management- controlled on oral medications -NIECY x 1 to thumb print suction-drainage decreasing(20cc)-?pull later today or tomorrow -Post op MRI shows decreasing abscess collection -Continue Ancef per ID -IM on board as well-appreciate input -ok for floor when bed available -call with any questions -Please notify NS with any change in neuro/motor exam Subjective: Awake and alert. NAD. Pt with expected T-L spine back pain. No new events overnight Objective: AAO x 3, PERRLA/EOMI no droop CN 2-12 grossly intact +lt touch 4/5 IL, DF, PF, and EHL-RLE 5/5 LLE NIECY x 1 Incision CDI Neuro Check Frequency: per routine Urinary Catheter in Place: No Catheter Insertion Date: 12/30/16 - Physician Discussed Patient with Dr.: Other (Alex) Neurosurgery Physical Exam - Vitals, I&O, Labs I and O 01/03/17 01/04/17 01/05/17 05:59 05:59 05:59 Intake Total 1600 600 Output Total 1528 770 Balance 72 -170 Intake: Oral (ml) 1500 600 IV Infused (ml) 100 ceFAZolin 2 GM/DEXTROSE 100 100 ml @ 200 mls/hr IV Q8HRS [facility] Rx#:[id number] Output: Urine (ml) 1450 750 Catheter 1450 750 NIECY Drain Output (ml) 78 20 #1 Posterior Back Pramod 6 Jonas #2 Posterior Back Pramod 72 20 Jonas Other: Intake Quantity Yes Sufficient Bladder Scan Volume (ml) Catheter 160 Microbiology 12/31/16 16:20 Gram Stain - Final Back - Tissue 12/31/16 16:17 Gram Stain - Final Other - Tissue 12/31/16 09:46 Gram Stain - Final Other - Tissue 12/31/16 09:46 Gram Stain - Final Other - Tissue Vital Signs Temp Pulse Resp BP Pulse Ox 36.8 C 65 13 114/63 95 01/03/17 23:53 01/04/17 05:25 01/03/17 23:53 01/04/17 05:25 01/03/17 23:53 Laboratory Results 01/04/17 05:20 01/04/17 05:20 ICD10 Worksheet Patient Problems: Problems Problem Status Onset Atrial fibrillation Acute Fever Acute
[2017-01-04] MEDS: LEVOTHYROXINE 112 MCG TAB PO SCH (08:09)
[2017-01-04] MEDS: CYANO/VITAMIN B12 1000 MCG TAB PO SCH (08:09)
[2017-01-04] MEDS: LIOTHYRONINE SODIUM 5 MCG TAB PO SCH (08:09)
[2017-01-04] MEDS: ENOXAPARIN 40 MG/0.4 ML SYR SC SCH (08:10)
[2017-01-04] MEDS: SENNOSIDES/DOCUSATE SODIUM TAB PO SCH ×2 (08:13→21:27)
[2017-01-04] MEDS: ACETAMINOPHEN 325 MG TAB PO PRN ×2 (10:17→18:20)
--- NOTE | 2017-01-04 12:45 | HOSPPROG ---
Hospitalist Progress Note Assessment/Plan: 81-year-old woman admitted with weakness and falls. She was admitted with a fall. Trauma evaluation was negative however blood cultures have since grown out MSSA. Evaluation has included MRI which revealed a large epidural abscess in the thoracic and lumbar spine. 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 # Sepsis 2/2 MSSA bacteremia and epidural abscess - tachycardia and leukocytosis on admit improving- WBC 9 - continue IV abx - no need for ongoing IVF a patient taking adequate p.o. # MSSA bacteremia secondary to epidural abscess- MRI thoracic spine ( personally reviewed and interpreted) improving epidural abscess s/p laminectomy and drainage of abscess - POD#3 - cultures from OR are growing Staph aureus - Continue IV ancef - post- surgical care per NSG # Anemia 2/2 acute blood loss - hgb 11 -> 9 - no active bleeding - potentially dilution with post-op fluids - follow h&H # tachypnea with increased oxygen needs- Had some fluid overload - now resolved oxygen saturations 92% on room air - continue to monitor oxygen needs as needed. # atrial tachycardia: Patient with intermittent tachycardia, discussed with Dr. Fuentes who feels this is not atrial fibrillation but likely an atrial tachycardia and does not need anticoagulation. Telemetry (personally reviewed and interpreted) sinus rhythm rate controlled - continue PO diltiazem # diarrhea- resolved # hypothyroidism, on replacement with normal TSH # hypertension stable, # diet - regular # proph - starting enoxaparin # dispo -> 2mn as requiring close post-op monitoring and IV abx I have discussed the case with RN - fluids continued overnight even though orders DC. Suspect this is the cause for dropping sodium will discontinue today and encourage normal p.o. Subjective: no events overnight Objective: Vital Signs Temp Pulse Resp BP Pulse Ox 36.4 C 104 H 20 127/68 H 93 01/04/17 12:33 01/04/17 12:33 01/04/17 12:33 01/04/17 12:33 01/04/17 12:33 Microbiology 12/31/16 16:17 Gram Stain - Final Other - Tissue 12/31/16 09:46 Gram Stain - Final Other - Tissue 12/31/16 09:46 Gram Stain - Final Other - Tissue 12/29/16 04:45 Blood Culture - Final Blood Staphylococcus Aureus 12/29/16 04:40 Blood Culture - Final Blood Staphylococcus Aureus 12/31/16 16:20 Gram Stain - Final Back - Tissue Laboratory Results 01/04/17 05:20 01/04/17 05:20 01/03/17 01/04/17 01/05/17 05:59 05:59 05:59 Intake Total 1600 600 Output Total 1528 770 Balance 72 -170 PT 14.4 SEC (12.0-15.0) 12/30/16 21:05 INR 1.13 (0.83-1.16) 12/30/16 21:05 - Physical Exam Constitutional: no apparent distress Eyes: anicteric sclera Ears, Nose, Mouth, Throat: moist mucous membranes Cardiovascular: regular rate and rhythym Respiratory: no respiratory distress Gastrointestinal: normoactive bowel sounds, soft, non-tender abdomen Genitourinary: no bladder fullness Skin: warm, normal color Musculoskeletal: No asymmetric calves Neurologic: AAOx3 Psychiatric: interacting appropriately, not anxious Lymph, Heme, Immunologic: no cervical LAD ICD10 Worksheet Patient Problems: Problems Problem Status Onset Atrial fibrillation Acute Fever Acute
--- NOTE | 2017-01-04 13:25 | PCMIDPN ---
Assessment/Plan: # Sepsis secondary to MSSA bacteremia & large epidural abscess from T8-L4: S/p T9-T10 and L2-L3 laminectomy and washout 12/31/2016, doing well postoperatively , sepsis has resolved. WBC not checked today --continue+ nafcillin for [employer] penetration with known epidural abscess --will need 8 weeks of therapy from surgery date --PICC line pending --check CBC and CRP in AM # elevated LFTs:resolved medications, ABX #7 nafcillin 2gm IV q4h, #1 microbiology 12/27, 12/29 Blood cultures: MSSA 01/01 blood cultures 2 sets: NGTD 12/31 surgical cx including epidural abscess: MSSA Subjective: hypotensive and dizzy with sitting up, notified Dr. Osorio Objective: Vital Signs Temp Pulse Resp BP Pulse Ox 36.4 C 104 H 20 127/68 H 93 01/04/17 12:33 01/04/17 12:33 01/04/17 12:33 01/04/17 12:33 01/04/17 12:33 Microbiology 12/31/16 16:17 Gram Stain - Final Other - Tissue 12/31/16 09:46 Gram Stain - Final Other - Tissue 12/31/16 09:46 Gram Stain - Final Other - Tissue 12/29/16 04:45 Blood Culture - Final Blood Staphylococcus Aureus 12/29/16 04:40 Blood Culture - Final Blood Staphylococcus Aureus 12/31/16 16:20 Gram Stain - Final Back - Tissue Laboratory Results 01/04/17 05:20 01/04/17 05:20 01/03/17 01/04/17 01/05/17 05:59 05:59 05:59 Intake Total 1600 600 Output Total 1528 770 Balance 72 -170 C-Reactive Protein 264.7 mg/L (<10.0) H 12/30/16 04:57 - Physical Exam General Appearance: alert, no apparent distress Respiratory: lungs clear, No accessory muscle use Neck: supple Cardiac/Chest: regular rate, rhythm, No tachycardia Extremities: No pedal edema Back: other (incision without redness, healing well, closed with glue. NIECY drain with serosang fluid) ICD10 Worksheet Patient Problems: Problems Problem Status Onset Atrial fibrillation Acute Fever Acute
[2017-01-04] MEDS: oxyCODONE IR 5 MG TAB PO PRN (15:36)
[2017-01-04] MEDS ORDERED: NS 1,000 ML IV ONE (17:04)
[2017-01-04] MEDS: METHOCARBAMOL 750 MG TAB PO PRN (21:27)
[2017-01-05] MEDS: NAFCILLIN SODIUM 2 GM in D5W 100 ML IV SCH ×5 (01:42→18:18)
[2017-01-05] MEDS: DILTIAZEM 60 MG TAB PO SCH ×4 (05:22→20:34)
[2017-01-05] MEDS: ACETAMINOPHEN 325 MG TAB PO PRN ×2 (05:22→20:36)
[2017-01-05] MEDS: METHOCARBAMOL 750 MG TAB PO PRN ×2 (05:22→20:36)
[2017-01-05 05:42] LABS: ADD DIFF? YES; ADD MORPH? NO; ADD SCAN? NO; ATYPICAL LYMPHOCYTE FLAG 20 (0-99); FRAGMENT RBC FLAG 0 (0-99); HEMATOCRIT 34.5 % (38.0-47.0); HEMOGLOBIN 11.7 g/dL (12.6-16.3); LEFT SHIFT FLG 40 (0-99); LIPEMIA HEMOLYSIS FLAG 90 (0-99); MEAN CELL HEMOGLOBIN 30.6 pg (27.9-34.1); MEAN CELL HEMOGLOBIN CONCENTR. 33.9 g/dL (32.4-36.7); MEAN CELL VOLUME 90.3 fL (81.5-99.8); MEAN PLATELET VOLUME 8.9 fL (8.7-11.7); PLATELET CLUMPS FLAG 20 (0-99); PLATELET COUNT 535 10^3/uL (150-400); RED BLOOD CELL COUNT 3.82 10^6/uL (4.18-5.33); RED CELL DISTRIBUTION WIDTH 14.6 % (11.5-15.2)
[2017-01-05 06:05] LABS: PLATELET ESTIMATE INCREASED (ADEQ)
[2017-01-05 06:26] LABS: ANION GAP 8 mEq/L (8-16); C-REACTIVE PROTEIN 69.1 mg/L (<10.0); CALCIUM 8.1 mg/dL (8.5-10.4); CARBON DIOXIDE 22 mEq/l (22-31); CHLORIDE 99 mEq/L (97-110); CREATININE 1.1 mg/dL (0.6-1.0); GLOMERULAR FILTRATION RATE 48; GLUCOSE 113 mg/dL (70-100); POTASSIUM 3.7 mEq/L (3.5-5.2); SODIUM 129 mEq/L (134-144)
[2017-01-05] MEDS ORDERED: oxyCODONE IR 5 MG TAB PO PRN (08:52)
[2017-01-05] MEDS: LEVOTHYROXINE 112 MCG TAB PO SCH ×2 (09:31→09:32)
[2017-01-05] MEDS: CYANO/VITAMIN B12 1000 MCG TAB PO SCH (09:32)
[2017-01-05] MEDS: LIOTHYRONINE SODIUM 5 MCG TAB PO SCH (09:32)
[2017-01-05] MEDS: ENOXAPARIN 40 MG/0.4 ML SYR SC SCH (09:38)
[2017-01-05] MEDS ORDERED: NS 1,000 ML IV ONE (10:38)
--- NOTE | 2017-01-05 11:15 | HOSPPROG ---
Hospitalist Progress Note Assessment/Plan: 81-year-old woman admitted with weakness and falls. She was admitted with a fall. Trauma evaluation was negative however blood cultures have since grown out MSSA. Evaluation has included MRI which revealed a large epidural abscess in the thoracic and lumbar spine. # Hyponatremia - pt with orthostatic BP changes yesterday and diszziness with sitting up - Urine studies returned with a low urine sodium - NS bolus x 1L given Sodium 126-> 129 this a.m.- - repeat NS bolus this am - follow in a.m. # acute Urinary retention - pt with intermittent straight cathing- had 800 cc this a.m. Suspect related to postop state and narcotics - continue p.r.n. straight cathing - times urinating and warm wipes - increase mobilization as able - limit narcotics- no antihistamines # Sepsis 2/2 MSSA bacteremia and epidural abscess - tachycardia and leukocytosis on admit improving- WBC 12 - PICC line placed - continue IV abx # MSSA bacteremia secondary to epidural abscess- MRI thoracic spine ( personally reviewed and interpreted) improving epidural abscess s/p laminectomy and drainage of abscess - POD#3 - cultures from OR are growing Staph aureus - Continue IV ancef - PICC line in place # Anemia 2/2 acute blood loss - hgb stable at 11 this am - no active bleeding - - follow h&H # tachypnea with increased oxygen needs- Had some fluid overload - now resolved oxygen saturations 92% on room air - continue to monitor oxygen needs as needed. # atrial tachycardia: Patient with intermittent tachycardia, discussed with Dr. Fuentes who feels this is not atrial fibrillation but likely an atrial tachycardia and does not need anticoagulation. Telemetry (personally reviewed and interpreted) sinus rhythm rate controlled - continue PO diltiazem # diarrhea- resolved # hypothyroidism, on replacement with normal TSH # hypertension stable, # diet - regular # proph - cont enoxaparin # dispo -> 2mn as requiring close post-op monitoring and IV abx I have discussed the case with RN - repeat NS bolus this am and encourage mobilization to help with AUR Subjective: Feels a bit stronger today Objective: Vital Signs Temp Pulse Resp BP Pulse Ox 36.7 C 85 16 128/74 H 92 01/05/17 07:49 01/05/17 07:49 01/05/17 07:49 01/05/17 07:49 08/13/17 07:49 Microbiology 12/31/16 16:20 Gram Stain - Final Back - Tissue 12/31/16 16:17 Gram Stain - Final Other - Tissue 12/31/16 09:46 Gram Stain - Final Other - Tissue 12/31/16 09:46 Gram Stain - Final Other - Tissue 12/29/16 04:45 Blood Culture - Final Blood Staphylococcus Aureus 12/29/16 04:40 Blood Culture - Final Blood Staphylococcus Aureus Laboratory Results 01/05/17 05:30 01/05/17 05:30 01/04/17 01/05/17 01/06/17 05:59 05:59 05:59 Intake Total 600 2380 Output Total 770 2145 600 Balance -170 235 -600 PT 14.4 SEC (12.0-15.0) 12/30/16 21:05 INR 1.13 (0.83-1.16) 12/30/16 21:05 - Physical Exam Constitutional: appears nourished Eyes: anicteric sclera Ears, Nose, Mouth, Throat: moist mucous membranes Cardiovascular: regular rate and rhythym, No tachycardia Respiratory: no respiratory distress Gastrointestinal: normoactive bowel sounds, soft, non-tender abdomen Genitourinary: no bladder fullness Skin: warm, normal color Musculoskeletal: No asymmetric calves Neurologic: AAOx3 Psychiatric: interacting appropriately Lymph, Heme, Immunologic: no cervical LAD ICD10 Worksheet Patient Problems: Problems Problem Status Onset Atrial fibrillation Acute Fever Acute
--- NOTE | 2017-01-05 12:14 | NEUSURGPN ---
Date of Surgery: 12/31/16 Post Op Day: 5 Assessment/Plan: Assessment: 81 y/o female s/p T9/10 and L2/3 laminectomy and washout of epidural abscess POD#5 Plan: -s/p T-L lami-pt with improving pain and improving strength -Optimize pain management- controlled on oral medications -Post op MRI shows decreasing abscess collection -Continue Ancef per ID -IM on board as well-appreciate input -call with any questions -Please notify NS with any change in neuro/motor exam Patient was seen and discussed with Dr Johnson as well Subjective: Patient feeling well this morning, denies any pain Objective: AAO x 3, PERRLA/EOMI no droop CN 2-12 grossly intact +lt touch 4/5 IL, DF, PF, and EHL-RLE 5/5 LLE Neuro Check Frequency: per routine Urinary Catheter in Place: No Catheter Insertion Date: 12/30/16 - Physician Discussed Patient with Dr.: Other (Dr Johnson) Patient Seen by Dr.: Other (Dr Johnson) Neurosurgery Physical Exam - Vitals, I&O, Labs I and O 01/04/17 01/05/17 01/06/17 05:59 05:59 05:59 Intake Total 600 2380 Output Total 770 2145 600 Balance -170 235 -600 Intake: Oral (ml) 600 700 IV Intake (ml) 50 IV Infused (ml) 1630 Nafcillin Sodium 2 gm In 630 D5w 100 ml @ 100 mls/hr IV Q4HRS [facility] Rx#: [id number] Ns 1,000 ml @ 3000 mls/hr 1000 IV ONCE ONE Rx#: [id number] Output: Urine (ml) 750 2125 600 Catheter 750 2125 600 NIECY Drain Output (ml) 20 20 #2 Posterior Back Pramod 20 20 Jonas Other: Intake Quantity Yes Sufficient Output Comment Catheter straight catheter Number of Voids Incontinence 1 Number of Stools Bedside Commode 1 1 Bladder Scan Volume (ml) Bedside Commode 647 Catheter 160 999 391 Microbiology 12/31/16 16:20 Gram Stain - Final Back - Tissue 12/31/16 16:17 Gram Stain - Final Other - Tissue 12/31/16 09:46 Gram Stain - Final Other - Tissue 12/31/16 09:46 Gram Stain - Final Other - Tissue 12/29/16 04:45 Blood Culture - Final Blood Staphylococcus Aureus 12/29/16 04:40 Blood Culture - Final Blood Staphylococcus Aureus Vital Signs Temp Pulse Resp BP Pulse Ox 36.3 C 93 16 92/71 L 90 L 01/05/17 11:52 01/05/17 11:52 01/05/17 11:52 01/05/17 11:52 01/05/17 11:52 Laboratory Results 01/05/17 05:30 01/05/17 05:30 ICD10 Worksheet Patient Problems: Problems Problem Status Onset Atrial fibrillation Acute Fever Acute
[2017-01-05] MEDS: SENNOSIDES/DOCUSATE SODIUM TAB PO SCH ×2 (12:56→22:33)
--- NOTE | 2017-01-05 14:20 | PCMIDPN ---
Assessment/Plan: # Sepsis secondary to MSSA bacteremia & large epidural abscess from T8-L4: S/p T9-T10 and L2-L3 laminectomy and washout 12/31/2016, doing well postoperatively , sepsis has resolved. --Nafcillin monitoring: WBC remains slightly elevated (no neutropenia), LFTs nl 02/04 . Cr slightly up today --repeat Cr tomorrow --reviewed Naf toxicity with patient and daughter at bedside --will need 8 weeks of therapy, 02/25/17 --PICC line placed yesterday --if Cr stable tomorrow DC from ID standpoint okay. # elevated LFTs:resolved medications, ABX #8 nafcillin 2gm IV q4h, #2 microbiology 12/27, 12/29 Blood cultures: MSSA 01/01 blood cultures 2 sets: NGTD 12/31 surgical cx including epidural abscess: MSSA Subjective: reluctant to go to rehab still a bit of dizziness with sitting Objective: Vital Signs Temp Pulse Resp BP Pulse Ox 36.3 C 93 16 92/71 L 90 L 01/05/17 11:52 01/05/17 11:52 01/05/17 11:52 01/05/17 11:52 01/05/17 11:52 Microbiology 12/31/16 16:20 Gram Stain - Final Back - Tissue 12/31/16 16:17 Gram Stain - Final Other - Tissue 12/31/16 09:46 Gram Stain - Final Other - Tissue 12/31/16 09:46 Gram Stain - Final Other - Tissue Laboratory Results 01/05/17 05:30 01/05/17 05:30 01/04/17 01/05/17 01/06/17 05:59 05:59 05:59 Intake Total 600 2380 Output Total 770 2145 600 Balance -170 235 -600 C-Reactive Protein 69.1 mg/L (<10.0) H 01/05/17 05:30 - Physical Exam General Appearance: alert, no apparent distress EENT: dry mucous membranes Respiratory: No accessory muscle use, No crackles Cardiac/Chest: regular rate, rhythm Extremities: No pedal edema Abdomen: non-tender, soft Skin: pallor, No rash Neuro/Psych: alert, normal mood/affect, oriented x 3 - Line/s RUE PICC Lines: No drainage, No erythema - Time Spent With Patient Time Spent with Patient: greater than 25 minutes Time Spent with Patient: Greater than 25 minutes spent on this patients care, greater than 50% of time spent counseling, educating, and coordinating care regarding the above mentioned plan. ICD10 Worksheet Patient Problems: Problems Problem Status Onset Atrial fibrillation Acute Fever Acute
--- NOTE | 2017-01-05 14:24 | PDIAF ---
- Diagnosis Diagnosis: MSSA bacteremia & large epidural abscess from T8-L4 Code Status: Full Code - Medication Management Discharge Medications: Medications to Continue on Transfer Cyanocobalamin [Vitamin B12 (*)] 1,000 mcg PO DAILY 12/27/16 [Last Taken ] Levothyroxine [Synthroid 112 mcg (*)] 112 mcg PO DAILY06 12/27/16 [Last Taken ] Liothyronine Sodium [Cytomel 5 mcg (*)] 5 mcg PO DAILY 12/27/16 [Last Taken 09/09] Jail Antibiotics: nafcillin 2gm IV [id number] Jail Antibiotic Stop Date: 02/25/17 Discharge Medications: Refer to the Discharge Home Medication list for PRN reason. PICC Care - Routine: Yes - Labs/Radiology CBC Date: 01/13/17 (Weekly, Friday; also 01/09/17 one time) CMP Date: 01/13/17 (Weekly, Friday; also 01/09/17 one time) Call or Fax Lab and Imaging Results to: Dr Tito Pickett [phone] - Follow Up Care Current Providers and Referrals: Patient,NotPresent [Unknown] - As per Instructions Tito Pickett MD [Medical Doctor] - follow up in 1 week
[2017-01-06] MEDS: NAFCILLIN SODIUM 2 GM in D5W 100 ML IV SCH ×5 (00:03→13:57)
[2017-01-06] MEDS: DILTIAZEM 60 MG TAB PO SCH ×3 (05:24→20:02)
[2017-01-06 05:49] LABS: ANION GAP 6 mEq/L (8-16); CALCIUM 7.6 mg/dL (8.5-10.4); CARBON DIOXIDE 23 mEq/l (22-31); CHLORIDE 102 mEq/L (97-110); CREATININE 1.2 mg/dL (0.6-1.0); GLOMERULAR FILTRATION RATE 43; GLUCOSE 106 mg/dL (70-100); POTASSIUM 3.2 mEq/L (3.5-5.2); SODIUM 131 mEq/L (134-144)
[2017-01-06] MEDS: ENOXAPARIN 40 MG/0.4 ML SYR SC SCH (08:42)
[2017-01-06] MEDS: LIOTHYRONINE SODIUM 5 MCG TAB PO SCH (08:43)
[2017-01-06] MEDS: CYANO/VITAMIN B12 1000 MCG TAB PO SCH (08:44)
[2017-01-06] MEDS: LEVOTHYROXINE 112 MCG TAB PO SCH (08:46)
[2017-01-06] MEDS: SENNOSIDES/DOCUSATE SODIUM TAB PO SCH ×2 (08:49→20:04)
--- NOTE | 2017-01-06 12:40 | NEUSURGPN ---
Assessment/Plan: Assessment: 81 y/o female s/p T9/10 and L2/3 laminectomy and washout of epidural abscess POD#6 Plan: -s/p T-L lami-pt with improving pain and improving strength, some delirium this am that daughter states was improved this morning but now is worse again. No pain meds recently given to her knowledge. -Optimize pain management- controlled on oral medications -Post op MRI shows decreasing abscess collection -Abx per ID. Switched off of Ancef and now on Nafcillin -IM on board as well-appreciate input -call with any questions -Please notify NS with any change in neuro/motor exam Patient was seen and discussed with Dr Johnson as well Subjective: Patient states she is doing well. Has soreness but not a lot of pain. Was up with PT yesterday with walker some. Objective: NAD, VSS Following commands BLE 5/5= Sensation intact to lt touch Incision- Lower incision c/c/di- dermabond in place and peeling off in some places, upper incision has some scabbing, and small amount of erythema around the incision but no active drainage Catheter Insertion Date: 12/30/16 - Physician Discussed Patient with Dr.: Other (Dr. Johnson) Patient Seen by Dr.: Other (Dr. Johnson) Neurosurgery Physical Exam - Vitals, I&O, Labs I and O 01/05/17 01/06/17 01/07/17 05:59 05:59 05:59 Intake Total 2380 300 420 Output Total 2145 1080 700 Balance 235 -780 -280 Intake: Oral (ml) 700 300 120 IV Intake (ml) 50 IV Infused (ml) 1630 300 Nafcillin Sodium 2 gm In 630 300 D5w 100 ml @ 100 mls/hr IV Q4HRS [facility] Rx#: [id number] Ns 1,000 ml @ 3000 mls/hr 1000 IV ONCE ONE Rx#: [id number] Output: Urine (ml) 2125 1080 700 Catheter 2125 1080 700 NIECY Drain Output (ml) 20 #2 Posterior Back Pramod 20 Jonas Other: Output Comment Catheter straight catheter straight cath Number of Voids Incontinence 1 Number of Stools Bedside Commode 1 1 Catheter 1 Incontinence 1 Bladder Scan Volume (ml) Bedside Commode 647 Catheter 999 460 Microbiology 01/01/17 06:25 Blood Culture - Final Blood 01/01/17 06:25 Blood Culture - Final Blood Vital Signs Temp Pulse Resp BP Pulse Ox 36.7 C 87 22 H 111/72 94 01/06/17 11:34 01/06/17 11:34 01/06/17 11:34 01/06/17 11:34 01/06/17 07:37 Laboratory Results 01/05/17 05:30 01/06/17 05:10 ICD10 Worksheet Patient Problems: Problems Problem Status Onset Atrial fibrillation Acute Fever Acute
[2017-01-06] MEDS: METHOCARBAMOL 750 MG TAB PO PRN (13:57)
--- NOTE | 2017-01-06 14:11 | HOSPPROG ---
Hospitalist Progress Note Assessment/Plan: Hospitalist Progress Note Assessment/Plan: 81-year-old woman admitted with weakness and falls. She was admitted with a fall. Trauma evaluation was negative however blood cultures have since grown out MSSA. Evaluation has included MRI which revealed a large epidural abscess in the thoracic and lumbar spine. First encounter, chart reviewed. D/W Dr Wheeler. # Hyponatremia - pt with orthostatic BP changes and diszziness with sitting up - Urine studies returned with a low urine sodium - - Better - NS bolus - follow in a.m. # acute Urinary retention - pt with intermittent straight cathing Suspect related to postop state and narcotics - continue p.r.n. straight cathing - times urinating and warm wipes - increase mobilization as able - limit narcotics- no antihistamines # JOYCE - creatinine small bump 1.2 this am - received more IVF today pt also just started on nafcillin - recheck in am # Sepsis 2/2 MSSA bacteremia and epidural abscess - tachycardia and leukocytosis on admit improving - PICC line placed - continue IV abx # MSSA bacteremia secondary to epidural abscess- MRI thoracic spine ( personally reviewed and interpreted) improving epidural abscess s/p laminectomy and drainage of abscess - POD#4 - cultures from OR are growing Staph aureus - Continue IV ancef - PICC line in place # Anemia 2/2 acute blood loss - follow h&H # Diarrhea -two episodes -"blood tinged" per RN -cont to watch for signs of gi bleed and/or cdiff # tachypnea with increased oxygen needs- Had some fluid overload - now resolved oxygen saturations 92% on room air - continue to monitor oxygen needs as needed. # atrial tachycardia: Patient with intermittent tachycardia, Dr. Fuentes who feels this is not atrial fibrillation but likely an atrial tachycardia and does not need anticoagulation. Telemetry (personally reviewed and interpreted) sinus rhythm rate controlled - continue PO diltiazem # hypothyroidism, on replacement with normal TSH # hypertension stable, # diet - regular # proph - cont enoxaparin # dispo -> 2mn as requiring close post-op monitoring and IV abx Subjective: Feels tired today. Needs motivation. Objective: Vital Signs Temp Pulse Resp BP Pulse Ox 36.7 C 101 H 22 H 111/72 94 01/06/17 11:34 01/06/17 12:46 01/06/17 11:34 01/06/17 12:46 01/06/17 07:37 Microbiology 12/31/16 16:20 Gram Stain - Final Back - Tissue 12/31/16 16:17 Gram Stain - Final Other - Tissue 12/31/16 09:46 Gram Stain - Final Other - Tissue 12/31/16 09:46 Gram Stain - Final Other - Tissue 01/01/17 06:25 Blood Culture - Final Blood 01/01/17 06:25 Blood Culture - Final Blood Laboratory Results 01/05/17 05:30 01/06/17 05:10 01/05/17 01/06/17 01/07/17 05:59 05:59 05:59 Intake Total 2380 300 540 Output Total 2145 1080 700 Balance 235 -780 -160 PT 14.4 SEC (12.0-15.0) 12/30/16 21:05 INR 1.13 (0.83-1.16) 12/30/16 21:05 - Physical Exam Constitutional: appears nourished, chronically ill appearing, uncomfortable Eyes: PERRL, anicteric sclera, EOMI Ears, Nose, Mouth, Throat: moist mucous membranes, hearing normal, ears appear normal Cardiovascular: regular rate and rhythym, No JVD, No edema Respiratory: no respiratory distress, no rales or rhonchi, reduced air movement Gastrointestinal: soft, non-tender abdomen, No tenderness, No ascites Skin: warm, normal color, No mottled Musculoskeletal: pain with ROM, muscular tenderness, generalized weakness Neurologic: AAOx3 Psychiatric: not anxious, not encephalopathic, thought process linear ICD10 Worksheet Patient Problems: Problems Problem Status Onset Fever Acute Atrial fibrillation Acute
--- NOTE | 2017-01-06 16:54 | PCMIDPN ---
Assessment/Plan: Assessment: MSSA bacteremia secondary to large epidural abscess. Patient is currently on nafcillin 2 g IV Q 4. Creatinine has increased from baseline of 0.8 to a current value of 1.2. Although the patient feels well I am concerned about acute kidney injury with continuance of nafcillin. We will change to IV ceftriaxone 2 g IV q.12 hours for optimum WOOD FURNITURE ASSEMBLER penetration. Follow up on stool sample sent for panel. Plan: 1. Discontinue IV nafcillin. 2. Start IV ceftriaxone 2 g q.12 hours. 3. Follow up on laboratory data. Subjective: Patient is resting in her hospital bed. Her son is in the room. She denies any new complaint in fact states that she feels better every day. She does not want to move around much in wishes to sleep more. She is having diarrhea. She has had 3 episodes today so far. There has been blood present twice. Objective: Nafcillin # 3 Vital Signs Temp Pulse Resp BP Pulse Ox 36.5 C 92 16 98/55 L 94 01/06/17 15:26 01/06/17 15:26 01/06/17 15:26 01/06/17 15:26 01/06/17 15:26 Microbiology 12/31/16 16:20 Gram Stain - Final Back - Tissue 12/31/16 16:17 Gram Stain - Final Other - Tissue 12/31/16 09:46 Gram Stain - Final Other - Tissue 12/31/16 09:46 Gram Stain - Final Other - Tissue 01/01/17 06:25 Blood Culture - Final Blood 01/01/17 06:25 Blood Culture - Final Blood Laboratory Results 01/05/17 05:30 01/06/17 05:10 01/05/17 01/06/17 01/07/17 05:59 05:59 05:59 Intake Total 2380 300 540 Output Total 2145 1080 700 Balance 235 -780 -160 C-Reactive Protein 69.1 mg/L (<10.0) H 01/05/17 05:30 - Physical Exam General Appearance: WD/WN, alert, no apparent distress, non-toxic Respiratory: lungs clear, normal breath sounds, No respiratory distress Cardiac/Chest: regular rate, rhythm, No tachycardia Skin: normal color, warm/dry, No rash Neuro/Psych: alert, normal mood/affect, oriented x 3 ICD10 Worksheet Patient Problems: Problems Problem Status Onset Atrial fibrillation Acute Fever Acute
[2017-01-06] MEDS: cefTRIAXone 2 GM in D5W 50 ML IV SCH (21:00)
[2017-01-07] MEDS: DILTIAZEM 60 MG TAB PO SCH ×2 (04:31→12:22)
[2017-01-07] MEDS ORDERED: NS 1,000 ML IV SCH (06:00)
--- NOTE | 2017-01-07 08:07 | NEUSURGPN ---
Assessment/Plan: Assessment: 81 y/o female s/p T9/10 and L2/3 laminectomy and washout of epidural abscess POD#7 Plan: -s/p T-L lami-pt with improving pain and improving strength, alert and appropriate today -Optimize pain management- controlled on oral medications, minimize narcotics to avoid confusion -Post op MRI shows decreasing abscess collection -Abx per ID. Switched off of Ancef and now on Nafcillin -IM on board as well-appreciate input -call with any questions -Please notify NS with any change in neuro/motor exam - Discussed yesterday assisted fall with patient and nursing staff. She is not having any increased pain or weakness this morning. Discussed with Dr Johnson Subjective: Surgical site pain tolerable. Denies any new leg pain, numbness, tingling or weakness. Objective: NAD A&Ox3 MAEx4 5/5 and equal in BUE and BLE. Incision c/d/i. There is some scab rubbing off the top incision. Nurse will place dry gauze on today Catheter Insertion Date: 12/30/16 - Physician Discussed Patient with Dr.: Other (Alex) Neurosurgery Physical Exam - Vitals, I&O, Labs I and O 01/06/17 01/07/17 01/08/17 05:59 05:59 05:59 Intake Total 300 540 Output Total 1080 1700 Balance -780 -1160 Intake: Oral (ml) 300 240 IV Infused (ml) 300 Nafcillin Sodium 2 gm In 300 D5w 100 ml @ 100 mls/hr IV Q4HRS [facility] Rx#: [id number] Output: Urine (ml) 1080 1700 Catheter 1080 1700 Other: Output Comment Catheter straight cath Number of Voids Catheter 10 Number of Stools Bedside Commode 1 1 Catheter 1 Incontinence 1 Bladder Scan Volume (ml) Bedside Commode 643 Catheter 460 404 Microbiology 12/31/16 16:20 Gram Stain - Final Back - Tissue 12/31/16 16:17 Gram Stain - Final Other - Tissue 12/31/16 09:46 Gram Stain - Final Other - Tissue 12/31/16 09:46 Gram Stain - Final Other - Tissue 01/01/17 06:25 Blood Culture - Final Blood 01/01/17 06:25 Blood Culture - Final Blood Vital Signs Temp Pulse Resp BP Pulse Ox 36.6 C 80 18 140/73 H 95 01/07/17 04:00 01/07/17 04:00 01/07/17 04:00 01/07/17 04:00 01/07/17 04:00 Laboratory Results 01/05/17 05:30 01/06/17 05:10 ICD10 Worksheet Patient Problems: Problems Problem Status Onset Atrial fibrillation Acute Fever Acute
[2017-01-07 08:08] VITALS: RESP 16
--- NOTE | 2017-01-07 08:43 | PCMIDPN ---
Assessment/Plan: Assessment/Plan: 1. MSSA bacteremia/sepsis secondary to large epidural abscess: -Currently on Ceftriaxone therapy. Changed yesterday due to rising creatinine. Check f/u labs today. -s/p wash out 12/31/16 - f/u blood cx ngtd from 01/01/17 -s/p picc line 01/04/17 -MRI shows large epidural abscess from T8-L4 -f/u appt in office 01/13/17 @1pm -care coordinated with Rn. - will update interagency form. Meds Ceftriaxone 2g q12- 01/06/17 s/p nacillin 2g q4- 01/03/17-01/06/17 ancef 2g q8-12/28/16-01/03/17 Subjective: Afebrile. feels well. weak but moving legs. Denies sob, abd pain. was having loose stools. back pain stable. Objective: Vital Signs Temp Pulse Resp BP Pulse Ox 36.6 C 89 16 123/68 H 94 01/07/17 04:00 01/07/17 08:00 01/07/17 08:00 01/07/17 08:00 01/07/17 08:00 Microbiology 12/31/16 16:20 Gram Stain - Final Back - Tissue 12/31/16 16:17 Gram Stain - Final Other - Tissue 12/31/16 09:46 Gram Stain - Final Other - Tissue 12/31/16 09:46 Gram Stain - Final Other - Tissue 01/01/17 06:25 Blood Culture - Final Blood 01/01/17 06:25 Blood Culture - Final Blood Laboratory Results 01/05/17 05:30 01/06/17 05:10 01/06/17 01/07/17 01/08/17 05:59 05:59 05:59 Intake Total 300 540 Output Total 1080 1700 Balance -780 -1160 C-Reactive Protein 69.1 mg/L (<10.0) H 01/05/17 05:30 - Physical Exam General Appearance: alert, no apparent distress Respiratory: lungs clear Cardiac/Chest: regular rate, rhythm Extremities: other (picc line RUE. no swelling), No swelling Abdomen: normal bowel sounds, non-tender, soft, No distended Skin: No erythema ICD10 Worksheet Patient Problems: Problems Problem Status Onset Atrial fibrillation Acute Fever Acute
--- NOTE | 2017-01-07 08:46 | PDIAF ---
- Diagnosis Diagnosis: MSSA bacteremia & large epidural abscess from T8-L4 Code Status: Full Code - Medication Management Discharge Medications: Medications to Continue on Transfer Cyanocobalamin [Vitamin B12 (*)] 1,000 mcg PO DAILY 12/27/16 [Last Taken ] Levothyroxine [Synthroid 112 mcg (*)] 112 mcg PO DAILY06 12/27/16 [Last Taken ] Liothyronine Sodium [Cytomel 5 mcg (*)] 5 mcg PO DAILY 12/27/16 [Last Taken 09/09] Mcc Antibiotics: Ceftriaxone 2g IV q12 Bead Maker Antibiotic Stop Date: 02/25/17 Discharge Medications: Refer to the Discharge Home Medication list for PRN reason. PICC Care - Routine: Yes - Labs/Radiology CBC Date: 01/13/17 (q mondays) CMP Date: 01/13/17 (q mondays) CRP Date: 01/13/17 (q mondays) Call or Fax Lab and Imaging Results to: Dr Tito Pickett [phone] - Follow Up Care Current Providers and Referrals: Patient,NotPresent [Unknown] - As per Instructions Tito Pickett MD [Medical Doctor] - 01/13/17 1:00 pm
[2017-01-07] MEDS: cefTRIAXone 2 GM in D5W 50 ML IV SCH (09:18)
--- NOTE | 2017-01-07 09:45 | HOSPPROG ---
Hospitalist Progress Note Assessment/Plan: 81-year-old woman admitted with weakness and falls. She was admitted with a fall. Trauma evaluation was negative however blood cultures have since grown out MSSA. Evaluation has included MRI which revealed a large epidural abscess in the thoracic and lumbar spine. First encounter, chart reviewed. * MSSA bacteremia secondary to a large epidural abscess Status post laminectomy and drainage of the abscess PICC in place On ceftriaxone * sepsis Due to the above Much improved * Hyponatremia Repeat labs today *hemorrhoids added treatment * acute urinary retention Limit narcotics * gait instability with a fall yesterday Per the nursing staff she kind of was guided down to the ground but did not hit the ground * diarrhea Clostridium difficile negative * acute kidney injury resolved *Hypokalemia added protocol * history of atrial tachycardia She is currently not on the monitor and storage bin tender Reviewed her vital signs and she is not tachycardic today Continue diltiazem * history of tachypnea with increased O2 needs O2 levels stable * hypothyroidism TSH stable * hypertension stable * DVT prophylaxis Low-molecular weight heparin Subjective: Jo Ann is feeling well, has no complaints. Objective: Vital Signs Temp Pulse Resp BP Pulse Ox 36.6 C 89 16 123/68 H 94 01/07/17 04:00 01/07/17 08:00 01/07/17 08:00 01/07/17 08:00 01/07/17 08:00 Microbiology 12/31/16 16:20 Gram Stain - Final Back - Tissue 12/31/16 16:17 Gram Stain - Final Other - Tissue 12/31/16 09:46 Gram Stain - Final Other - Tissue 12/31/16 09:46 Gram Stain - Final Other - Tissue 01/01/17 06:25 Blood Culture - Final Blood 01/01/17 06:25 Blood Culture - Final Blood 01/06/17 01/07/17 01/08/17 05:59 05:59 05:59 Intake Total 300 540 Output Total 1080 1700 Balance -780 -1160 PT 14.4 SEC (12.0-15.0) 12/30/16 21:05 INR 1.13 (0.83-1.16) 12/30/16 21:05 - Physical Exam Constitutional: no apparent distress, appears nourished, not in pain Eyes: PERRL Ears, Nose, Mouth, Throat: hearing normal Cardiovascular: regular rate and rhythym, no murmur, rub, or gallop Respiratory: no respiratory distress Gastrointestinal: normoactive bowel sounds Skin: warm Musculoskeletal: generalized weakness Neurologic: AAOx3 Psychiatric: interacting appropriately ICD10 Worksheet Patient Problems: Problems Problem Status Onset Atrial fibrillation Acute Fever Acute
[2017-01-07 09:53] LABS: ALANINE AMINOTRANSFERASE 22 IU/L (9-52); ALKALINE PHOSPHATASE 109 IU/L (38-126); ANION GAP 9 mEq/L (8-16); ASPARTATE AMINOTRANSFERASE 27 IU/L (14-46); BILIRUBIN,TOTAL 0.6 mg/dL (0.1-1.4); BILIRUBIN-CONJUGATED 0.4 mg/dL (0.0-0.5); BILIRUBIN-UNCONJUGATED 0.2 mg/dL (0.0-1.1); CALCIUM 7.5 mg/dL (8.5-10.4); CARBON DIOXIDE 21 mEq/l (22-31); CHLORIDE 104 mEq/L (97-110); GLOMERULAR FILTRATION RATE 53; GLUCOSE 106 mg/dL (70-100); SODIUM 134 mEq/L (134-144); TOTAL PROTEIN 4.7 g/dL (6.3-8.2)
[2017-01-07 09:54] LABS: ADD DIFF? YES; ADD MORPH? NO; ADD SCAN? NO; ATYPICAL LYMPHOCYTE FLAG 10 (0-99); FRAGMENT RBC FLAG 0 (0-99); HEMATOCRIT 29.2 % (38.0-47.0); HEMOGLOBIN 9.8 g/dL (12.6-16.3); LEFT SHIFT FLG 20 (0-99); LIPEMIA HEMOLYSIS FLAG 80 (0-99); MEAN CELL HEMOGLOBIN 30.8 pg (27.9-34.1); MEAN CELL HEMOGLOBIN CONCENTR. 33.6 g/dL (32.4-36.7); MEAN CELL VOLUME 91.8 fL (81.5-99.8); MEAN PLATELET VOLUME 8.8 fL (8.7-11.7); PLATELET CLUMPS FLAG 0 (0-99); PLATELET COUNT 445 10^3/uL (150-400); RED BLOOD CELL COUNT 3.18 10^6/uL (4.18-5.33); RED CELL DISTRIBUTION WIDTH 15.5 % (11.5-15.2)
[2017-01-07] MEDS: LIOTHYRONINE SODIUM 5 MCG TAB PO SCH (10:02)
[2017-01-07] MEDS: LEVOTHYROXINE 112 MCG TAB PO SCH (10:02)
[2017-01-07] MEDS: CYANO/VITAMIN B12 1000 MCG TAB PO SCH (10:02)
[2017-01-07] MEDS: ENOXAPARIN 40 MG/0.4 ML SYR SC SCH (10:03)
[2017-01-07] MEDS: SENNOSIDES/DOCUSATE SODIUM TAB PO SCH (10:14)
[2017-01-07] MEDS ORDERED: HYDROCORTISONE ACETATE 25 MG SUPP PR PRN (10:25)
[2017-01-07] MEDS ORDERED: PROTOCOL POTASSIUM 1 DOSE MISC PRN (10:32)
[2017-01-07] MEDS ORDERED: POTASSIUM CL 10 MEQ TAB PO ONE (10:40)
[2017-01-07 10:56] LABS: PLATELET ESTIMATE INCREASED (ADEQ)
--- NOTE | 2017-01-07 11:12 | PDIAF ---
- Diagnosis Diagnosis: MSSA bacteremia & large epidural abscess from T8-L4, hypokalemia, hemorroid Code Status: Full Code - Medication Management Discharge Medications: Medications to Continue on Transfer Cyanocobalamin [Vitamin B12 (*)] 1,000 mcg PO DAILY 12/27/16 [Last Taken ] Levothyroxine [Synthroid 112 mcg (*)] 112 mcg PO DAILY06 12/27/16 [Last Taken ] Liothyronine Sodium [Cytomel 5 mcg (*)] 5 mcg PO DAILY 12/27/16 [Last Taken 09/09] Diltiazem [Cardizem 60 MG (*)] 60 mg PO Q8H tab 01/07/17 [Last Taken Unknown] Hydrocortisone Acetate [Hemorrhoidal Hc 25 mg supp (*)] 25 mg PA BID PRN #0 supp 01/07/17 [Last Taken Unknown] Methocarbamol [Robaxin 750 mg (*)] 750 mg PO TID PRN #0 tab 01/07/17 [Last Taken Unknown] Polyethylene Glycol 3350 [Miralax 17 gm (*)] 17 gm PO DAILY PRN #0 pkt 01/07/17 [Last Taken Unknown] Sennosides/Docusate Sodium [Senokot-S] 1 - 2 tab PO BID tab 01/07/17 [Last Taken Unknown] oxyCODONE IR [Oxycodone Ir (*)] 5 - 10 mg PO Q3HRS PRN #0 tab 01/07/17 [Last Taken Unknown] Briquetter Operator Antibiotics: Ceftriaxone 2g IV q12 Briquetter Operator Antibiotic Stop Date: 02/25/17 Discharge Medications: Refer to the Discharge Home Medication list for PRN reason. PICC Care - Routine: Yes - Orders Services needed: Physical Therapy, Occupational Therapy Diet Recommendation: no restrictions on diet Diet Texture: Regular Texture Diet Wound Care Instructions: Follow up with Dr. Solis (please call [phone] to schedule) in 2 weeks with a new MRI of the thoracic and lumbar spine with contrast. Daily dressing changes with dry gauze. Okay to shower and get incisions wet. Do not soak. No lotions/cream to the incision. Pat dry. - Labs/Radiology CBC Date: 01/13/17 (q mondays) CMP Date: 01/13/17 (q mondays) CRP Date: 01/13/17 (q mondays) Call or Fax Lab and Imaging Results to: Dr Tito Pickett [phone] - Follow Up Care Current Providers and Referrals: Patient,NotPresent [Unknown] - As per Instructions Tito Pickett MD [Medical Doctor] - 01/13/17 1:00 pm Alonzo Johnson MD [Medical Doctor] -
[2017-01-07 11:54] VITALS: BP 94/74; PULSE 107; TEMP 98; O2SAT 90
--- NOTE | 2017-01-07 12:28 | GDS ---
[f rep st] DISCHARGE SUMMARY DISCHARGE DIAGNOSIS: 1. Methicillin-sensitive Staphylococcus aureus bacteremia secondary to a large epidural abscess. 2. Sepsis. 3. Hyponatremia. 4. Hemorrhoids. 5. Acute urinary retention. 6. Gait instability with a fall last evening. 7. Diarrhea. 8. Acute kidney injury. 9. Hypokalemia. 10. History of atrial tachycardia. 11. History of tachypnea with increased oxygen needs. 12. Hypothyroidism. 13. Hypertension. CONSULTATIONS: Dr. Tito Pickett. Dr. Alonzo Johnson. Dr. Jose Fuentes. BRIEF HISTORY: The patient is an 81-year-old female with a past medical history for hypothyroidism, hypertension, chronic kidney disease. She fell around December 22, landing on her right side. She followed up with her primary care doctor and had stable labs except for an elevated C-reactive protein. Prior to that episode, she had some diarrhea with shaking chills and intermittent fevers. Blood cultures were sent and she was growing out methicillin-sensitive Staphylococcus aureus bacteremia. Subsequently, she had a head CT that was unremarkable. A pelvis CT was also unremarkable. A cervical spine CT showed some degenerative joint disease. Her temperatures started to improve. Over her stay, it was noted that she had methicillin-sensitive Staphylococcus aureus bacteremia with associated sepsis. She had a thoracic spine performed on 12/30/2016 which showed an epidural abscess extending to the mid thoracic spine with enhancement to the level of T6- T7 with a fluid last visible at approximately T8-T9. Subsequently, she had surgery with Dr. Johnson on December 31, which noted that she had purulent fluid in the epidural space at both laminectomy sites. She has done extremely well during her stay. She will be discharged to a group home facility. Will continue on ceftriaxone and further followup with Dr. Pickett and Dr. Johnson in the outpatient setting. HOSPITAL COURSE PER PROBLEM: 1. MSSA bacteremia. This is secondary to a large epidural abscess. She is status post laminectomy and drainage of this abscess. She will be on ceftriaxone. A PICC line is in place. 2. Sepsis. Resolved. 3. Hyponatremia. Stable. 4. Hemorrhoids. I have added treatment for this. 5. Acute urinary retention. Have left the Delg[place] in. She has required multiple self-catheterizations. This should resolve once narcotics are discontinued. 6. Gait instability with somewhat of a fall yesterday. She needed more help than 1 nursing staff person. She did not take a significant fall but slid down to the ground. 7. Diarrhea. Clostridium difficile is negative. 8. Acute kidney injury. Resolved. 9. Hypokalemia. Protocol has been added. 10. History of atrial tachycardia. I reviewed her vital signs. She has not been tachycardic. She is on diltiazem. 11. History of tachypnea. Oxygen levels are stable on room air. 12. Hypothyroidism. TSH is stable. 13. Hypertension. Blood pressure is stable. CONDITION AT DISCHARGE: Stable. Blood pressure is 123/68. O2 sats on room air 94%. Respiratory rate is 16. Pulse is 89. Temperature 36.6 Celsius. MEDICATIONS AT DISCHARGE: Please see the EMR. DISCHARGE INSTRUCTIONS: 1. Further follow up with Dr. Johnson in the outpatient setting. 2. Further follow up with Infectious Disease. 3. If she develops fever, chills, chest pain, shortness of breath, return to the ER. Greater than 30 minutes discharging and coordinating care. Copy requested to: Dr. Johnson /[id number]/MODL MTDD
== END 2017-01-07 13:00 | DRG 853 ==
LOC: EDUNIT# → F2W 18:25 → F2N 12-30 22:11 → F3N 01-04 08:52
PROVIDERS: ADMIT Internal Medicine; ATTEND Internal Medicine
PROC: 0RB60ZZ Excision of Thoracic Vertebral Joint, Open Approach (ICD-10-PCS; principal; 2016-12-31 17:00)
PROC: 0SB00ZZ Excision of Lumbar Vertebral Joint, Open Approach (ICD-10-PCS; principal; 2016-12-31 17:00)
PROC: 02HV33Z Insertion of Infusion Device into Superior Vena Cava, Percutaneous Approach (ICD-10-PCS; 2017-01-04)
DX: A41.01 Sepsis due to Methicillin susceptible Staphylococcus aureus (principal); G06.2 Extradural and subdural abscess, unspecified; E87.1 Hypo-osmolality and hyponatremia; N17.9 Acute kidney failure, unspecified; K64.9 Unspecified hemorrhoids; R33.9 Retention of urine, unspecified; R19.7 Diarrhea, unspecified; E87.6 Hypokalemia; E03.9 Hypothyroidism, unspecified; I12.9 Hypertensive chronic kidney disease with stage 1 through stage 4 chronic kidney disease, or unspecified chronic kidney disease; N18.9 Chronic kidney disease, unspecified; I48.91 Unspecified atrial fibrillation; Z96.641 Presence of right artificial hip joint; W19.XXXA Unspecified fall, initial encounter
CPT/HCPCS: 96374; 97116-GP; 97161-GP; 97164-GP; 97165-GO; 97168-GO; 97530-GO; 97530-GP; 97535-GO; A9585; C1751; G8978-GP-CJ; G8978-GP-CK; G8979-GP-CI; G8979-GP-CJ; G8987-GO-CL; G8987-GO-CM; G8988-GO-CJ; J0690; J0696; J1030; J1335; J1650; J1940; J2001; J2250; J2310; J2370; J2704; J3010; J3370; Q9967

== ENCOUNTER → 2017-02-27 | Outpatient (CLI) | payer OTHER ==
[~2017-02-27] MED LIST: GADOBUTROL 10 ML VIAL IVP ONE; fentaNYL 100 MCG/2 ML INJ ONE
[2017-02-27 12:19] LABS: CREATININE 0.9 mg/dL (0.6-1.0); GLOMERULAR FILTRATION RATE > 60
== END ==
LOC: FIMAGING 11:06
PROVIDERS: ATTEND Neurological Surgery
DX: M51.36 Other intervertebral disc degeneration, lumbar region (principal); M51.35 Other intervertebral disc degeneration, thoracolumbar region
CPT/HCPCS: 72157; 72158; A9585; J3010

== ENCOUNTER → 2017-09-09 | Outpatient (CLI) | payer OTHER | LOC: BMCIMAGING 15:08 | PROVIDERS: ATTEND Internal Medicine | DX: R91.1 Solitary pulmonary nodule (principal); Z87.891 Personal history of nicotine dependence ==

== ENCOUNTER 2018-02-03 12:55 | Emergency (ER) | payer OTHER ==
[2018-02-03 13:42] LABS: PLATELET COUNT 245 10^3/uL (150-400)
--- NOTE | 2018-02-03 13:51 | EDPHY ---
HPI/HX/ROS/PE/MDM Narrative: CHIEF COMPLAINT: Daughter concerned for possible CVA HISTORY OF PRESENT ILLNESS: This patient is an 82 year-old female arriving with her daughter after several brief episodes of unconsciousness after lunch today. In the car, her daughter noticed she had suddenly become stiff and slumped over with her eyes rolled back. This was associated with shaking in her right arm. She had two more similar episodes in the car on the way to the emergency department. Following these, the patient and her daughter deny confusion, foaming at the mouth, prolonged periods of unresponsiveness. Patient denies palpitations, chest pain, shortness of breath. Denies any premonition of these events. The patient did have a couple glasses of wine with lunch. Currently she is feeling well. No numbness, weakness, or paresthesias in her face or extremities. Denies any recent illness or traumas. No imbalance. Her only complaint is low energy levels. Recent change in her thyroid medication. No fever, chills, chest pain, shortness of breath, palpitations, vomiting, diarrhea, urinary complaints, headache, lightheadedness. Of note, the patient has had similar episodes several times over the past year. REVIEW OF SYSTEMS: A comprehensive 10 system review of systems is otherwise negative aside from elements mentioned in the history of present illness and medical decision making. PAST MEDICAL HISTORY: Hypothyroid. Orthopedic surgeries. SOCIAL HISTORY: Daughter at bedside. Retired. Lives independently at home with her dog. VITAL SIGNS: Reviewed by me. BP at triage 69/47. In room during my interview, 103/53. GENERAL: Well-developed, well-nourished, resting comfortably in no respiratory distress. HEENT: Atraumatic. Eyes: No icterus, no injection. Mouth: moist mucous membranes. No erythema or lesions. Neck: supple with no adenopathy. LUNGS: Clear to auscultation bilaterally, no wheezes, rhonchi or rales. CARDIAC: Mildly irregular rate and rhythm, no rubs, murmurs or gallops. ABDOMEN: Soft, nontender, nondistended, bowel sounds normal. BACK: No CVA tenderness. EXTREMITIES: No trauma. No edema. Range of motion is normal throughout. NEURO: Alert and oriented, CN 2-12 intact. Motor strength 5/5 throughout. Sensation intact. Speech is clear, sensical, fluid. SKIN: Warm and dry, no rash. PSYCHIATRIC: Normal mentation, no agitation. Portions of this note were transcribed by a medical screener. I personally performed a history, physical exam, medical decision making, and confirmed accuracy of information the transcribed note. ED Course: This 82 y/o female presents following three episodes of unconsciousness with associated upper extremity shaking this afternoon after lunch. She has had several similar episodes in the past. Patient was hypotensive at 69/47 at triage. This had improved by the time of my interview, systolic BP 103. Plan for labs including CBC, chemistries, liver, lipase, troponin, EtOH. 12-LEAD EKG: Please see the full report in [facility]. My interpretation: Sinus rhythm with PACs. Abnormal R-wave progression. Rate 65. 14:06 Notified by nurse that patient is refusing CT scan. 14:14 Reassessed. Patient agrees to CT head after further discussion. CXR negative for acute processes. Reviewed laboratory studies. BUN and creatinine mildly elevated, possible dehydration. EtOH 43. Plan for additional labs including TSH (patient request.) 15:[address] Mcfarland, radiologist. CT head negative for acute intracranial processes. TSH low at 0.205. 16:02 Reassessed patient. Discussed imaging and laboratory results. I am concerned regarding these syncopal episodes without any premonition or presyncopal symptoms. I offered admission numerous times for further evaluation but the patient declines. Daughter understands my concerns and my desire for further evaluation to include serial troponins, cardiac monitoring, etc. Patient again declines admission, states she feels well. Plan to discharge home in good condition with referral to cardiology. I encouraged the patient to stay well-hydrated and avoid alcoholic beverages. Follow up and return precautions discussed. She is comfortable with this plan. MDM: Diff dx for patients syncope was considered including but not limited to vasovagal syncope, arrhythmia, dehydration, and blood loss. - Data Points Imaging Results: CT Head: Impression: 1. No acute intracranial process. 2. 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 Findings and recommendations discussed with Jael Lobato MD at 1505 hour, 02/03/2018. Dictated By: Bismark Mcfarland MD CXR: Impression: 1. No active cardiopulmonary disease seen. No change since prior study. Dictated By: Hima Ma MD Imaging: Discussed imaging studies w/ faculty i on call medical assistant Radiologist, I viewed and interpreted images myself Laboratory Results: Laboratory Results 02/03/18 13:15 02/03/18 13:15 Medications Given: Discontinued Medications Sodium Chloride (Ns) 1,000 mls @ 0 mls/hr IV ONCE ONE; Wide Open PRN Reason: Protocol Stop: 02/03/18 14:00 Last Admin: 02/03/18 14:00 Dose: 1,000 mls Point of Care Test Results: Chemistry 02/03/18 13:28 POC Troponin I 0.00 ng/mL ng/mL (0.00-0.08) General Time Seen by Provider: 02/03/18 13:39 Initial Vital Signs: Initial Vital Signs Temperature (C) 36.7 C 02/03/18 13:06 Heart Rate 79 02/03/18 13:06 Respiratory Rate 18 02/03/18 13:06 Blood Pressure 69/47 L 02/03/18 13:06 O2 Sat (%) 93 02/03/18 13:06 O2 Delivery Mode Room Air Allergies/Adverse Reactions: SOME TYPE OF ABX Allergy (Uncoded 02/03/18 13:04) Home Medications: Medication Instructions Recorded Cyanocobalamin [Vitamin B12 (*)] 1,000 mcg PO DAILY 12/27/16 Levothyroxine [Synthroid 112 mcg 112 mcg PO DAILY06 12/27/16 (*)] Liothyronine Sodium [Cytomel 5 mcg 5 mcg PO DAILY 12/27/16 (*)] Hydrocortisone Acetate 25 mg KS BID PRN #0 supp 01/07/17 [Hemorrhoidal Hc 25 mg supp (*)] Methocarbamol [Robaxin 750 mg (*)] 750 mg PO TID PRN #0 tab 01/07/17 Departure - Departure Disposition: Home, Routine, Self-Care Clinical Impression: Hypotension, Syncope Condition: Good Instructions: Syncope (ED), Hypotension (ED) Additional Instructions: 1. Stay well-hydrated. Avoid alcoholic beverages. 2. Follow up with cardiology for further evaluation. 3. Follow up with your primary care provider. Your PCP can order blood cultures. 4. Return to the emergency department for recurrence of symptoms, fever, chest pain, shortness of breath, or other worsening of condition or further concerns. Referrals: Pablo Sauceda MD [Primary Care Provider] - As per Instructions Jude Workman MD [Medical Doctor] - As per Instructions Report Scribed for: Jael Lobato Report Scribed by: Rae Jain Date of Report: 02/03/18 Time of Report: 13:59
[2018-02-03] MEDS ORDERED: NS 1,000 ML IV ONE (13:59)
[2018-02-03 16:37] VITALS: BP 143/86
--- NOTE | 2018-02-03 20:16 | CPEKG ---
Test Reason : OPEN Blood Pressure : / mmHG Vent. Rate : 065 BPM Atrial Rate : 066 BPM P-R Int : 200 ms QRS Dur : 075 ms QT Int : 420 ms P-R-T Axes : -56 -04 056 degrees QTc Int : 437 ms Sinus or ectopic atrial rhythm Atrial premature complex Abnormal R-wave progression, early transition Confirmed by Jael Lobato ([id number]) on 02/03/2018 8:16:29 PM Referred By: Confirmed By:Jael Lobato
== END 2018-02-03 16:35 | disposition home or self-care (01) ==
DX: R55 Syncope and collapse (principal); I95.9 Hypotension, unspecified; E86.9 Volume depletion, unspecified; R25.1 Tremor, unspecified; E03.9 Hypothyroidism, unspecified
CPT/HCPCS: 84484-PO; G0480